=== PATIENT | female | born 1950 | race Caucasian/White ===

== ENCOUNTER 2018-04-16 21:10 | Observation (INO) ==
[2018-04-16 21:38] LABS: Bilirubin,Urine Negative (Negative); Blood,Urine Trace (Negative); Clarity,Urine Clear (Clear); Color,Urine Yellow (Yellow); Glucose,Urine (UA) Normal (Normal); Ketones,Urine Negative (Negative); Leukocyte Esterase,Urine Negative (Negative); Nitrite,Urine Negative (Negative); Protein,Urine Trace mg/dL (Neg-Trace); Specific Gravity,Urine 1.012 (1.010-1.025); Urobilinogen,Urine Normal (Normal)
[2018-04-16 21:41] LABS: Bacteria,Urine None Seen per hpf (None-Few); Hyaline Casts,Urine None Seen per lpf (None-Few); Squamous Epithelial Cell,Urine Few per lpf (None-Few); WBC,Urine 0-3 per hpf (0-3)
[2018-04-16] MEDS ORDERED: Levofloxacin 750 MG/150 ML 750 MG/150 ML BAG IVPB ONE (21:42)
[2018-04-16] MEDS ORDERED: Ipratropium/Albuterol Neb 3 ML IH ONE (21:42)
[2018-04-16] MEDS ORDERED: methylPREDNISolone 125 MG/2 ML VIAL IVP ONE (21:42)
--- NOTE | 2018-04-16 21:43 | Emergency Department Note ---
Disposition Clinical Impression: Hip pain, left Acetabular fracture Qualifiers: Encounter type: initial encounter Sublocation of acetabulum: unspecified portion of acetabulum Fracture type: closed Fracture alignment: nondisplaced Laterality: left Qualified Code(s): S32.402A - Unspecified fracture of left acetabulum, initial encounter for closed fracture Pubic ramus fracture Qualifiers: Encounter type: subsequent encounter Fracture type: closed Laterality: right Fracture healing: with nonunion Qualified Code(s): S32.591K - Other specified fracture of right pubis, subsequent encounter for fracture with nonunion Pneumonia Qualifiers: Pneumonia type: due to unspecified organism Laterality: right Lung location: middle lobe of lung Qualified Code(s): J18.1 - Lobar pneumonia, unspecified organism Disposition: Admitted As Inpatient Condition: Good Time of Disposition: 22:47 General Adult HPI - General Chief complaint: ED Extremity Injury, Lower Stated complaint: Fall Time Seen by Provider: 04/16/18 21:10 Source: patient, EMS Limitations: no limitations Nursing Notes Reviewed: Yes Vital Signs Reviewed: Yes - History of Present Illness HPI Narrative: Female patient sustained a ground-level fall that was mechanical around 7:00 today. [facility] with pubic rami fractures age-indeterminate. Ambulate when she got home. Also complaining of some shortness of breath. Does have a history of COPD. Plenty of pain in her inguinal area bilaterally. As well as her hips. States she cannot bear any weight due to the pain in her hips. Has not tried any medication to make it better. She was given tramadol prescription but she has not gotten this filled. Did call 911 to be seen here. Pain Scale: 10 - Related Data Home Medications Medication Instructions Recorded Confirmed Aspirin [Lo-Dose Aspirin EC] 81 mg PO DAILY 03/16/17 04/16/18 Albuterol Sulfate [Ventolin Hfa] 2 puff IH Q4H PRN 04/16/18 04/16/18 Budesonide/Formoterol 160/4.5 2 puff IH BIDR 04/16/18 04/16/18 [Symbicort 160/4.5] Omeprazole [PriLOSEC] 40 mg PO DAILY 04/16/18 04/16/18 Previous Rx's Medication Instructions Recorded Diltiazem CD (24hr) [Cardizem CD] 120 mg PO DAILY #30 cap.er.24h 01/12/17 Ranitidine HCl [Zantac] 300 mg PO HS #30 tablet 03/16/17 Tramadol HCl [Ultram] 50 mg PO BID PRN 3 Days #10 tab 04/16/18 Allergies Allergy/AdvReac Type Severity Reaction Status Date / Time acetaminophen [From Tylenol] Allergy See Verified 04/16/18 21:56 Comments ibuprofen Allergy See Verified 04/16/18 21:56 Comments All systems ED: reviewed and negative except as stated. Constitutional: Denies: fever, chills ENT ED: Denies: congestion Cardiovascular: Denies: chest pain, palpitations, syncope Respiratory: Reports: cough, dyspnea Gastrointestinal: Denies: abdominal pain, nausea, vomiting, diarrhea, hematemesis, melena, hematochezia Genitourinary: Denies: urgency, dysuria, frequency Musculoskeletal: Reports: other (Bilateral hip pain.). Denies: back pain, neck pain Integumentary: Denies: rash Neurological: Reports: weakness. Denies: headache Past Medical History - Past Medical History Attestation: Yes The following information was validated with the patient. 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 - Social History Smoking Status: Current every day smoker Smokeless Tobacco Status: No Alcohol use: Reports: none Drug use: Reports: none Physical Exam - General Limitations: no limitations General appearance: alert, in no apparent distress - Head Head exam: atraumatic, normocephalic, normal inspection, other (No hematomas no abrasions no ecchymosis.) - Eye Eye exam: Present: normal appearance, PERRL, EOMI - ENT ENT exam: normal exam, normal oropharynx, mucous membranes moist - Neck Neck exam: Present: normal inspection, full ROM, trachea midline - Chest Chest inspection: Present: normal inspection, symmetric chest wall rise - Respiratory Respiratory exam: Present: other (Rhonchi throughout.). Absent: respiratory distress, accessory muscle use - Cardiovascular Cardiovascular exam: Present: regular rate, normal rhythm, normal heart sounds - Abdominal Exam Abdominal exam: Present: soft, Non-Tender. Absent: tenderness, distention, guarding, rebound, rigidity, organomegaly - Extremities Exam Extremities exam: Present: tenderness (To palpation of both greater trochanters. She also has in extensioon of her hips bilaterally.good capillary refill to both bilateral loower extremities. bilateral inguinal pain on palpation. pain on section), normal capillary refill. Absent: pedal edema - Back Exam Back exam: Present: normal inspection, full ROM. Absent: tenderness - Neurological Exam Neurological exam: Present: alert, oriented X3 - Psychiatric Psychiatric exam: Present: normal affect, normal mood - Skin Skin exam: Present: warm, dry, intact, normal color Course Course Narrative: Female patient brought in by EMS for bilateral hip pain. She had a fall around 7 AM this morning. She states it was mechanical. She started to walk but slipped and fell. She has been complaining of inguinal pain bilaterally since. She states that she did bump her head. She is not on blood thinners. She denies any loss of consciousness. She denies pain to palpation of midline cervical area. She does have pain palpation of her bilateral inguinal areas as well as bilateral trochanteric areas. She states that she was diagnosed with pelvic fractures [facility] and sent home. She did go home with her daughter. She states that she could not get up and ambulate as she is in too much pain. Patient does have rhonchi throughout. Chest x-ray from [facility] does show some slight hazy opacities on the right. I do believe this is a pneumonia due to patient's stated shortness of breath and rhonchi. She does have a history of COPD. She is a smoker. We did talk about smoking sensation. On CT evaluation patient does have pubic rami fractures bilaterally. I do not appreciate any hip fractures. She does have the pneumonia right-sided on chest x-ray. We did get a basic lab workup on her and we will provide her with steroids and albuterol treatment as well as Levaquin. We will admit to the hospital. - Consultations Consultation #1: I spoke with Dr Mckinney. He requests the Pt being nonweight bearing. He will see the Pt tomorrow. Time: 22:34 Consultation #2: Dr Cain accepted Pt in stable condition. Time: 22:36 Vital Signs Temperature 98.7 F 04/16/18 21:14 Pulse Rate 98 04/16/18 21:14 Respiratory Rate 16 04/16/18 21:14 Blood Pressure 182/67 04/16/18 21:14 O2 Sat by Pulse Oximetry 95 04/16/18 21:14 Temperature 98.7 F 04/16/18 21:14 Pulse Rate 102 04/16/18 22:03 Respiratory Rate 20 04/16/18 22:03 Blood Pressure 134/58 04/16/18 22:03 O2 Sat by Pulse Oximetry 95 04/16/18 22:03 Oxygen Delivery Oxygen Delivery Room Air Medical Decision Making - Medical Records Medical records reviewed: Yes I reviewed the patient's medical records. - Lab Data Lab results reviewed: Yes I reviewed the patient's lab results. Result diagrams: 04/16/18 21:40 04/16/18 21:40 Lab Results 04/16/18 04/16/18 04/16/18 Range/Units 21:20 21:40 21:40 WBC 9.2 (4.3-11.1) K/mcL RBC 4.34 (3.82-4.97) M/mcL Hgb 13.3 (11.5-15.4) g/dL Hct 38.6 (35.3-44.9) % MCV 88.9 (83.0-100.0) fL MCH 30.6 (28.0-33.3) pg MCHC 34.5 (31.6-35.5) g/dL RDW 13.4 (11.5-14.5) % Plt Count 169 (140-400) K/mcL MPV 8.5 L (9.4-12.4) fL Immature Gran % 0.2 (0-4) % Seg Neutrophils % 66.8 % Lymphocytes % 25.9 % Monocytes % 6.0 % Eosinophils % 0.8 % Basophils % 0.3 % Neutrophils # 6.2 (1.6-8.9) K/mcL Lymphocytes # 2.4 (0.6-4.6) K/mcL Monocytes # 0.6 (0.0-1.3) K/mcL Eosinophils # 0.1 (0.0-0.6) K/mcL Basophils # 0.0 (0.0-0.2) K/mcL Sodium 142 (136-145) mEq/L Potassium 3.8 (3.5-5.1) mEq/L Chloride 109 H (98-107) mEq/L Carbon Dioxide 25 (23-29) mEq/L BUN 16 (8-23) mg/dL Creatinine 0.60 (0.60-1.20) mg/dL Est GFR ( Amer) > 60 (> 60) Est GFR (Non-Af Amer) > 60 (> 60) BUN/Creatinine Ratio 27 H (6-26) Glucose 136 H (70-105) mg/dL Calculated Osmolality 297 (280-300) Calcium 9.3 (8.6-10.3) mg/dL Troponin I < 0.03 (< 0.04) ng/mL Urine Color Yellow (Yellow) Urine Clarity Clear (Clear) Urine pH 7.0 (5.0-8.0) pH Units Ur Specific [place] 1.012 (1.010-1.025) Urine Protein Trace (Neg-Trace) mg/dL Urine Glucose (UA) Normal (Normal) mg/dL Urine Ketones Negative (Negative) mg/dL Urine Blood Trace H (Negative) Urine Nitrite Negative (Negative) Urine Bilirubin Negative (Negative) Urine Urobilinogen Normal (Normal) mg/dL Ur Leukocyte Esterase Negative (Negative) Urine Microscopic RBC 5-15 H (0-3) per hpf Urine Microscopic WBC 0-3 (0-3) per hpf Ur Squamous Epith Cells Few (None-Few) per lpf Urine Bacteria None Seen (None-Few) per hpf Hyaline Casts None Seen (None-Few) per lpf Ur Culture Indicated? NO (NO) - Radiology Data Radiology results reviewed: Yes I reviewed the patient's radiology results. Pelvis CT 04/16/18 21:22 IMPRESSION: Comminuted fracture of the right pubis. Minimally displaced fractures of the bilateral inferior pubic rami. Nondisplaced fracture of the left anterior acetabulum. Minimally displaced fracture of the left sacral ala. D/ / Gurwinder Reyes MD / Gurwinder Reyes MD Interpreting Provider: Gurwinder Reyes MD - EKG Data EKG #1 EKG attestation: Yes I reviewed and interpreted this EKG. EKG results narrative: EKG shows incomplete bundle branch with ventricular rate of 96. MO interval appears to be approximately 170 ms. QRS duration 102. QTC of 412. No acute signs of ST segment elevation or reciprocal changes at this time. No acute signs of WPW or Brugada syndrome. Morphology in lead V2 is change from previous with Q waves patient is denying chest pain or symptoms and her troponin is negative. EKG was collected secondary to the patient's increased work of breathing. Otherwise she is clinically stable. EKG was compared to 01/12 with similar presenting intervals and presentation. Attestation Statement - Attestation Attestation: I, Sriram Rose DO, examined this patient [id number] and my medical decision-making was reviewed with Dr. Esther Nunes, Resident Physician. I agree with the documented findings, disposition and treatment plan as described except to the extent set forth below. Please see my progress notes for details.
[2018-04-16 22:04] LABS: Basophils % 0.3 %; Eosinophils # 0.1 K/mcL (0.0-0.6); Eosinophils % 0.8 %; Hematocrit 38.6 % (35.3-44.9); Hemoglobin 13.3 g/dL (11.5-15.4); Immature Granulocytes % 0.2 % (0-4); Lymphocytes # 2.4 K/mcL (0.6-4.6); Lymphocytes % 25.9 %; Mean Corpuscular HGB Conc 34.5 g/dL (31.6-35.5); Mean Corpuscular Hemoglobin 30.6 pg (28.0-33.3); Mean Corpuscular Volume 88.9 fL (83.0-100.0); Mean Platelet Volume 8.5 fL (9.4-12.4); Monocytes # 0.6 K/mcL (0.0-1.3); Neutrophils # 6.2 K/mcL (1.6-8.9); Platelet Count 169 K/mcL (140-400); Red Blood Count 4.34 M/mcL (3.82-4.97); Red Cell Distribution Width 13.4 % (11.5-14.5); Segmented Neutrophils % 66.8 %
[2018-04-16] MEDS ORDERED: *HR* Nalbuphine 10 MG/ML AMPUL IV STA (22:14)
--- NOTE | 2018-04-16 22:23 | Emergency Department Note ---
Disposition Clinical Impression: Hip pain, left, Acetabular fracture, Pubic ramus fracture, Pneumonia Disposition: Admitted As Inpatient Condition: Fair Forms: ED Satisfaction Letter Time of Disposition: 22:38 General Adult HPI - General Chief complaint: ED Extremity Injury, Lower Stated complaint: Fall Time Seen by Provider: 04/16/18 21:10 Source: patient, EMS Limitations: no limitations - History of Present Illness Pain Scale: 8 - Related Data Home Medications Medication Instructions Recorded Confirmed Aspirin [Lo-Dose Aspirin EC] 81 mg PO DAILY 03/16/17 04/16/18 Albuterol Sulfate [Ventolin Hfa] 2 puff IH Q4H PRN 04/16/18 04/16/18 Budesonide/Formoterol 160/4.5 2 puff IH BIDR 04/16/18 04/16/18 [Symbicort 160/4.5] Omeprazole [PriLOSEC] 40 mg PO DAILY 04/16/18 04/16/18 Previous Rx's Medication Instructions Recorded Diltiazem CD (24hr) [Cardizem CD] 120 mg PO DAILY #30 cap.er.24h 01/12/17 Ranitidine HCl [Zantac] 300 mg PO HS #30 tablet 03/16/17 Tramadol HCl [Ultram] 50 mg PO BID PRN 3 Days #10 tab 04/16/18 Allergies Allergy/AdvReac Type Severity Reaction Status Date / Time acetaminophen [From Tylenol] Allergy See Verified 04/16/18 21:56 Comments ibuprofen Allergy See Verified 04/16/18 21:56 Comments Past Medical History - Past Medical History Medical history: Reports: asthma, COPD, GERD, hypertension, myocardial infarction Surgical history: Reports: cholecystectomy, other (Cardiac catheterization) Psychiatric history: Reports: anxiety, depression 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 - Social History Smoking Status: Current every day smoker Smokeless Tobacco Status: No Alcohol use: Reports: none Drug use: Reports: none Physical Exam - General Limitations: no limitations General appearance: alert, in no apparent distress Course Vital Signs Temperature 98.7 F 04/16/18 21:14 Pulse Rate 98 04/16/18 21:14 Respiratory Rate 16 04/16/18 21:14 Blood Pressure 182/67 04/16/18 21:14 O2 Sat by Pulse Oximetry 95 04/16/18 21:14 Temperature 98.7 F 04/16/18 21:14 Pulse Rate 102 04/16/18 22:03 Respiratory Rate 20 04/16/18 22:03 Blood Pressure 134/58 04/16/18 22:03 O2 Sat by Pulse Oximetry 95 04/16/18 22:03 Oxygen Delivery Oxygen Delivery Room Air Medical Decision Making - Lab Data Result diagrams: 04/16/18 21:40 Lab Results 04/16/18 04/16/18 Range/Units 21:20 21:40 WBC 9.2 (4.3-11.1) K/mcL RBC 4.34 (3.82-4.97) M/mcL Hgb 13.3 (11.5-15.4) g/dL Hct 38.6 (35.3-44.9) % MCV 88.9 (83.0-100.0) fL MCH 30.6 (28.0-33.3) pg MCHC 34.5 (31.6-35.5) g/dL RDW 13.4 (11.5-14.5) % Plt Count 169 (140-400) K/mcL MPV 8.5 L (9.4-12.4) fL Immature Gran % 0.2 (0-4) % Seg Neutrophils % 66.8 % Lymphocytes % 25.9 % Monocytes % 6.0 % Eosinophils % 0.8 % Basophils % 0.3 % Neutrophils # 6.2 (1.6-8.9) K/mcL Lymphocytes # 2.4 (0.6-4.6) K/mcL Monocytes # 0.6 (0.0-1.3) K/mcL Eosinophils # 0.1 (0.0-0.6) K/mcL Basophils # 0.0 (0.0-0.2) K/mcL Urine Color Yellow (Yellow) Urine Clarity Clear (Clear) Urine pH 7.0 (5.0-8.0) pH Units Ur Specific [place] 1.012 (1.010-1.025) Urine Protein Trace (Neg-Trace) mg/dL Urine Glucose (UA) Normal (Normal) mg/dL Urine Ketones Negative (Negative) mg/dL Urine Blood Trace H (Negative) Urine Nitrite Negative (Negative) Urine Bilirubin Negative (Negative) Urine Urobilinogen Normal (Normal) mg/dL Ur Leukocyte Esterase Negative (Negative) Urine Microscopic RBC 5-15 H (0-3) per hpf Urine Microscopic WBC 0-3 (0-3) per hpf Ur Squamous Epith Cells Few (None-Few) per lpf Urine Bacteria None Seen (None-Few) per hpf Hyaline Casts None Seen (None-Few) per lpf Ur Culture Indicated? NO (NO) Attestation Statement - Attestation Attestation: I, Sriram Rose DO, examined this patient [id number] and my medical decision-making was reviewed with Dr. Esther Nunes, Resident Physician. I agree with the documented findings, disposition and treatment plan as described except to the extent set forth below. Please see my progress notes for details. 67-year-old female presents emergency room for evaluation of bilateral hip pain and back pain. Patient fell and was diagnosed with pubic rami fractures. Patient was attempting to go home this afternoon was unable to get up and down her stairs without significant difficulty and significant pain in her hips. She denies any new fall. Denied any head injury at that time. Denies any chest pain shortness of breath headache vision changes nausea vomiting or diarrhea. She does have known COPD and a productive cough. She has smoked. She will use his breathing treatments at home. Currently denying any other symptoms or complaints. Patient is mainly here because the pain in her back and cannot take care of herself. Chest x-ray is concerning for possible pneumonia with the previous evaluation. X-rays also showed age-indeterminate pubic rami fracture. Pain medication side Medrol breathing treatments will be given secondary to the cough productive sputum. Patient will have EKG CBC chemistry troponin and BMP collected along with screening evaluation and CT imaging of the pelvis. Disposition pending the full workup and treatment course. Symptomatic control will be established. An approximately started if needed. Patient is otherwise clinical stable despite discomfort. See detailed documentation of the physical exam, medical intervention, medical decision- making and disposition in the resident physician's note. 2230 Patient found to have pubic rami fractures as well as an anterior acetabular fracture of the left hip. Sacral alar fracture is also noted. This is most likely the reason for the patient having symptoms in the pelvis and hip at this time. She was started on antibiotics secondary to suspicion for pneumonia as well as a elevated white blood cell count. The remainder the labs and imaging modalities appear to be otherwise stable. Orthopedics will be consult at the request of the hospitalist Dr. Munoz. The remainder of the medical intervention and evaluation. Be stable. Orthopedics Dr. giraldo was contacted no other recommendations at this time. Patient will be admitted for definitive management and pain control. In about 7 started. Blood cultures ordered. EKG to be reviewed and patient will be observed in emergency room until admission process is completed
[2018-04-16 22:26] LABS: BUN/Creatinine Ratio 27 (6-26); Blood Urea Nitrogen 16 mg/dL (8-23); Calcium 9.3 mg/dL (8.6-10.3); Carbon Dioxide 25 mEq/L (23-29); Chloride 109 mEq/L (98-107); Glucose 136 mg/dL (70-105); Osmolality,Calculated 297 (280-300); Potassium 3.8 mEq/L (3.5-5.1); Sodium 142 mEq/L (136-145); eGFR For Non-African Americans > 60 (> 60)
[2018-04-16 22:27] LABS: Troponin I < 0.03 ng/mL (< 0.04)
[2018-04-16] MEDS ORDERED: Naloxone 0.4 MG/ML INJ IVP PRN (23:36)
[2018-04-17] MEDS ORDERED: Isovue-370 500 ML INFUS..BTL IV ONE (00:31)
--- NOTE | 2018-04-17 01:05 | Internal Med History&Physical ---
Date of Encounter: 04/17/18 Time of Encounter: 01:00 Internal Medicine - H&P: HPI Chief complaint: Bilateral hip and back pain History of present illness: Ms. Flores is a 67 year old female with pmh of COPD, GERD, VA presenting with complaints. Patient says she got up from bed to go to the bathroom and must have tripped over a pair of scissors and fell heavily. She says she had severe pain when she tried to get up and has had severe pain on ambulating since then. She called her daughter who called EMS to bring her in. she also complains of shortness of breath and coughing non productive that has been going on for a while now. She admits to occasional chills. She also noted she has had abdominal swelling that has been going on for a while, denies any history of liver disease. She denies any abdominal pain, nausea, vomiting or diarrhea. In the ER, CT of the pelvis showed pubic rami fracture and an anterior acetabular fracture of the left hip. She was given steroids and antibiotics and breathing treatment as well as orthopedic surgery was consulted Past Med Surg Social Fam HX - Past Medical History Medical history: asthma, COPD, CVA, GERD, hypertension, myocardial infarction Psychiatric history: anxiety, depression - Past Surgical History Surgical History: cholecystectomy, other Additional surgical history: collapsed lung. heart cath - Social History Smoking Status: Current every day smoker Smokeless Tobacco Status: No Alcohol use: none Drug use: none - Family History Mother Living Status: Cause of : VA Hx Family Cardiac Disorders: Yes Father Living Status: Cause of : Got shot Internal Medicine - H&P: Meds Diltiazem CD (24hr) [Cardizem CD] 120 mg PO DAILY #30 cap.er.24h 01/12/17 [Rx] Aspirin [Lo-Dose Aspirin EC] 81 mg PO DAILY 03/16/17 [History] Ranitidine HCl [Zantac] 300 mg PO HS #30 tablet 03/16/17 [Rx] Albuterol Sulfate [Ventolin Hfa] 2 puff IH Q4H PRN 04/16/18 [History] Budesonide/Formoterol 160/4.5 [Symbicort 160/4.5] 2 puff IH BIDR 04/16/18 [ History] Omeprazole [PriLOSEC] 40 mg PO DAILY 04/16/18 [History] Tramadol HCl [Ultram] 50 mg PO BID PRN 3 Days #10 tab 04/16/18 [Rx] 3 Allergy/AdvReac Type Severity Reaction Status Date / Time acetaminophen [From Tylenol] Allergy See Verified 04/16/18 21:56 Comments ibuprofen Allergy See Verified 04/16/18 21:56 Comments All Systems PM: A 10-system review of systems was performed and is negative for pertinent findings except as documented above in the HPI. - Constitutional Constitutional: no chills, no fever(s), no night sweats - EENT Eyes: no change in vision, no discharge, no pain, no photophobia Ears: no ear discharge, no ear pain, no tinnitus Nose, mouth and throat: no dysphagia, no nasal discharge, no neck pain, no sore throat - Cardiovascular Cardiovascular ROS IM: dyspnea, no chest pain, no diaphoresis, no lightheadedness, no palpitations, no syncope - Respiratory Respiratory: wheezing, no cough, no dyspnea, no excessive phlegm production - Gastrointestinal Gastrointestinal: no abdominal pain, no diarrhea, no hematemesis, no hematochezia, no melena, no nausea, no vomiting - Genitourinary Genitourinary: no change in urinary stream, no dysuria, no flank pain, no hematuria - Musculoskeletal Musculoskeletal ROS IM: back pain, no numbness, no tingling Additional comments: hip pain - Integumentary Integumentary IM: no rash, no unusual bruising - Neurological Neurological ROS: no confusion, no convulsions, no focal weakness, no numbness, no tingling, no tremor(s) - Hematologic/Lymphatic Hematologic/Lymphatic: no easy bruising - Constitutional Vitals: Temp Pulse Resp BP Pulse Ox 98.3 F 98 18 162/68 92 04/16/18 23:48 04/16/18 23:48 04/16/18 23:48 04/16/18 23:48 04/16/18 23:48 - Head Head exam: Present: atraumatic, normocephalic - Eye Eye exam: Present: PERRL, conjuntiva pink, sclera anicteric Pupils: Present: PERRL - Neck Neck exam general surgery: Present: supple, trachea midline. Absent: lymphadenopathy - Respiratory Respiratory exam: Present: wheezes. Absent: accessory muscle use, rales, rhonchi - Cardiovascular Cardiovascular exam: Present: RRR, +S1, +S2. Absent: diastolic murmur, gallop, rubs, systolic murmur - GI/Abdominal GI/Abdominal exam: Present: distended, normal bowel sounds, soft, no peritoneal signs. Absent: tenderness Additional comments: tympanitic to percussion - Extremities Exam Extremities exam: Present: warm, radial pulses palpable and symmetrical. Absent : calf tenderness, cyanotic, pedal edema - Neurological Exam Neurological exam: Present: CN II-XII intact, oriented X3, no focal deficits. Absent: pronater drift, facial droop, speech deficit - Skin Skin exam: Present: dry, intact Internal Med - H&P Results - Labs CBC & Chem 7: 04/17/18 00:47 04/17/18 00:47 - Assessment and plan (1) Pubic ramus fracture Current Visit: Yes Status: Acute Assessment and plan: s/p fall today. CT pelvis showed comminuted fracture of the right pubis and minimally displaced factures of the bilateral inferior pubic rami and non displaced fracture of the left anterior acetabulum. Pain control PRN. Orthopedic surgery to evaluate in am Qualifiers: Encounter type: subsequent encounter Fracture type: closed Laterality: right Fracture healing: with nonunion Qualified Code(s): S32.591K - Other specified fracture of right pubis, subsequent encounter for fracture with nonunion (2) Acetabular fracture Current Visit: Yes Status: Acute Assessment and plan: s/p fall today. CT pelvis showed comminuted fracture of the right pubis and minimally displaced factures of the bilateral inferior pubic rami and non displaced fracture of the left anterior acetabulum. Pain control PRN. Orthopedic surgery to evaluate in am Qualifiers: Encounter type: initial encounter Sublocation of acetabulum: unspecified portion of acetabulum Fracture type: closed Fracture alignment: nondisplaced Laterality: left Qualified Code(s): S32.402A - Unspecified fracture of left acetabulum, initial encounter for closed fracture (3) COPD exacerbation Current Visit: Yes Status: Acute Assessment and plan: Started on nebs, steroids and antibiotics. Obtain chest xray (4) DVT prophylaxis Current Visit: Yes Status: Acute Assessment and plan: heparin sc (5) Abdominal distension Current Visit: Yes Status: Acute Assessment and plan: Unclear etiology. Patient says she has had abdominal swelling for a while. Abdomen is tympanitic to percussion. Obtain LFTs, CT abdomen - Time Spent With Patient Total time spent is greater than 50% in coordination of care (as documented) at patient's floor/unit and/or counseling patient:
[2018-04-17] MEDS: methylPREDNISolone 125 MG/2 ML VIAL IVP SCH ×2 (01:23→08:02)
[2018-04-17] MEDS: Ipratropium/Albuterol Neb 3 ML IH SCH ×5 (01:24→16:03)
[2018-04-17 01:44] LABS: Basophils % 0.2 %; Eosinophils % 0.2 %; Hematocrit 36.6 % (35.3-44.9); Hemoglobin 12.3 g/dL (11.5-15.4); Immature Granulocytes % 0.4 % (0-4); Lymphocytes # 0.9 K/mcL (0.6-4.6); Lymphocytes % 8.9 %; Mean Corpuscular HGB Conc 33.6 g/dL (31.6-35.5); Mean Corpuscular Hemoglobin 29.4 pg (28.0-33.3); Mean Corpuscular Volume 87.6 fL (83.0-100.0); Mean Platelet Volume 9.3 fL (9.4-12.4); Monocytes # 0.2 K/mcL (0.0-1.3); Monocytes % 1.5 %; Neutrophils # 8.8 K/mcL (1.6-8.9); Platelet Count 186 K/mcL (140-400); Red Blood Count 4.18 M/mcL (3.82-4.97); Red Cell Distribution Width 13.5 % (11.5-14.5); Segmented Neutrophils % 88.8 %
[2018-04-17 02:05] LABS: Albumin 4.1 g/dL (3.5-5.7); Albumin/Globulin Ratio 1.3 (1.1-2.2); BUN/Creatinine Ratio 24 (6-26); Bilirubin,Direct 0.1 mg/dL (0.0-0.2); Bilirubin,Indirect 0.3 mg/dL (0.0-1.2); Bilirubin,Total 0.4 mg/dL (0.3-1.0); Blood Urea Nitrogen 17 mg/dL (8-23); Calcium 9.2 mg/dL (8.6-10.3); Carbon Dioxide 23 mEq/L (23-29); Chloride 107 mEq/L (98-107); Globulin 3.2 g/dL (2.4-3.5); Glucose 279 mg/dL (70-105); Osmolality,Calculated 302 (280-300); Potassium 3.9 mEq/L (3.5-5.1); Sodium 140 mEq/L (136-145); Total Protein 7.3 g/dL (6.4-8.9); eGFR For Non-African Americans > 60 (> 60)
[2018-04-17] MEDS: traMADol 50 MG TABLET PO PRN ×2 (05:21→17:14)
[2018-04-17] MEDS ORDERED: *HR* Heparin 5,000 UNIT/ML VIAL SQ SCH (06:00)
[2018-04-17] MEDS ORDERED: Levofloxacin 750 MG/150 ML 750 MG/150 ML BAG IVPB SCH (09:00)
[2018-04-17] MEDS ORDERED: Aspirin Enteric Coated 81 MG Tablet PO SCH (09:00)
[2018-04-17] MEDS ORDERED: Diltiazem CD (24hr) 120 MG CAPSULE PO SCH (09:00)
[2018-04-17] MEDS ORDERED: Budesonide/Formoterol 160/4.5 1 PUFF INH IH SCH (10:00)
[2018-04-17] MEDS ORDERED: Nicotine 21 MG PATCH.TD24 TD SCH (11:45)
--- NOTE | 2018-04-17 13:22 | Orthopedic Consult Note ---
Date of Encounter: 04/17/18 Time of Encounter: 12:20 Assessment and Plan (1) Pubic ramus fracture Status: Acute CT of pelvis showed - Comminuted fracture of the right pubis. Minimally displaced fractures of the bilateral inferior pubic rami. Nondisplaced fracture of the left anterior acetabulum. Minimally displaced fracture of the left sacral ala. Discussed with Dr. Mckinney who recommends nonoperative management at this time. TTWB. PT/OT eval. Will likely need ECF placement. Pain control per hospitalist. Follow up with sports medicine in [place] office in 1 weeks. Qualifiers: Encounter type: subsequent encounter Fracture type: closed Laterality: right Fracture healing: with routine healing Qualified Code(s): S32.591D - Other specified fracture of right pubis, subsequent encounter for fracture with routine healing (2) Acetabular fracture Status: Acute same as above Qualifiers: Encounter type: initial encounter Sublocation of acetabulum: anterior wall Fracture type: closed Fracture alignment: nondisplaced Laterality: left Qualified Code(s): S32.415A - Nondisplaced fracture of anterior wall of left acetabulum, initial encounter for closed fracture History of Present Illness Chief complaint: hip pain HPI: Ms. Flores is a 67 year old female presented to ER with hip pain after a fall yesterday morning. She states she fell in her bedroom while trying to get up to go to the bathroom. Typically ambulates with a walker/cane. States she has minimal pain in hips at this time while at rest and has had improved motion in legs since being admitted. Denies any numbness or tingling to extremities. Denies hitting head or LOC. She does have chronic SOB due to COPD. States she lives alone at home. Past Med Surg Social Fam HX - Past Medical History Medical history: asthma, COPD, CVA, GERD, hypertension, myocardial infarction Psychiatric history: anxiety, depression - Past Surgical History Surgical History: cholecystectomy, other Additional surgical history: collapsed lung. heart cath - Social History Smoking Status: Current every day smoker Smokeless Tobacco Status: No Alcohol use: none Drug use: none - Family History Mother Living Status: Cause of : MD Hx Family Cardiac Disorders: Yes Father Living Status: Cause of : Got shot Medications and Allergies Diltiazem CD (24hr) [Cardizem CD] 120 mg PO DAILY #30 cap.er.24h 01/12/17 [Rx] Aspirin [Lo-Dose Aspirin EC] 81 mg PO DAILY 03/16/17 [History] Ranitidine HCl [Zantac] 300 mg PO HS #30 tablet 03/16/17 [Rx] Albuterol Sulfate [Ventolin Hfa] 2 puff IH Q4H PRN 04/16/18 [History] Budesonide/Formoterol 160/4.5 [Symbicort 160/4.5] 2 puff IH BIDR 04/16/18 [ History] Omeprazole [PriLOSEC] 40 mg PO DAILY 04/16/18 [History] Ipratropium/Albuterol Neb [Duoneb] 3 ml IH [id number] PRN inhsol 04/17/18 [Rx] Levofloxacin [Levaquin] 750 mg PO DAILY #4 tablet 04/17/18 [Rx] Tramadol HCl [Ultram] 50 mg PO Q8H PRN 5 Days #10 tab 04/17/18 [Rx] predniSONE [PredniSONE] 40 mg PO DAILY #10 tablet 04/17/18 [Rx] 3 Allergy/AdvReac Type Severity Reaction Status Date / Time acetaminophen [From Tylenol] Allergy See Verified 04/16/18 21:56 Comments ibuprofen Allergy See Verified 04/16/18 21:56 Comments All Systems Reviewed: The remainder of the systems were reviewed and are negative - Constitutional Constitutional: as per HPI - Cardiovascular Cardiovascular: as per HPI - Respiratory Respiratory: as per HPI - Musculoskeletal Musculoskeletal: as per HPI Physical Exam - Constitutional Vitals: Temp Pulse Resp BP Pulse Ox 98.4 F 103 16 151/79 93 04/17/18 11:28 04/17/18 11:28 04/17/18 11:28 04/17/18 11:28 04/17/18 11:28 - Hip bilateral Tenderness with palpation: anterior (mild tenderness to palpation to anterior pelvis. no eccymosis, erythema or skin lesions noted to bilateral hips. patient laying with knees bent comfortably with no pain in hips. full ROM of knees and good dorsiflexion of feet. no calf tenderness. grossly NV intact) Results - Labs Result Diagrams: 04/17/18 00:47 04/17/18 00:47 Labs: Abnormal lab results MPV 9.3 fL (9.4-12.4) L 04/17/18 00:47 Glucose 279 mg/dL (70-105) H 04/17/18 00:47 Calculated Osmolality 302 (280-300) H 04/17/18 00:47 Magnesium 1.4 mg/dL (1.6-2.6) L 04/17/18 00:47 Urine Blood Trace (Negative) H 04/16/18 21:20 Urine Microscopic RBC 5-15 per hpf (0-3) H 04/16/18 21:20 H & H 04/17/18 Range/Units 00:47 Hgb 12.3 (11.5-15.4) g/dL Hct 36.6 (35.3-44.9) % All other labs normal. - Diagnostic results Hip CT: report reviewed, image reviewed Consult Discharge Plan - Plan Additional Instructions: FOLLOW UP IN 1 WEEK WITH SPORTS MEDICINE PER NOEMI MOSLEY- 04/24/18 @ 1pm in [place], [place] office with Dr. Saavedra. TOE TOUCH WEIGHT BEARING TO LLE. Referrals: Raymon Saavedra MD [Non-Partnered Physician] - 04/24/18 1:00 pm (04/24/18 @ 1pm - [place] office) Prescriptions: Levofloxacin [Levaquin] 750 mg PO DAILY #4 tablet predniSONE [PredniSONE] 40 mg PO DAILY #10 tablet Tramadol HCl [Ultram] 50 mg PO Q8H PRN 5 Days #10 tab PRN Reason: Pain - Attending Attestation case and plan of care discussed with supervising physician who was available for all aspects of care.
--- NOTE | 2018-04-17 15:08 | Internal Med Progress Note ---
Hospitalist Progress Note - Encounter Date of Encounter: 04/17/18 Time of Encounter: 10:50 - Subjective Interval History: Reports feeling well; has left hip pain and lower back and pelvic pain, which is now better; no nausea, vomiting, abdominal pain; wants to go to rehab upon discharge; - Exam Vitals: Temp Pulse Resp BP Pulse Ox 98.4 F 103 16 151/79 93 04/17/18 11:28 04/17/18 11:28 04/17/18 11:28 04/17/18 11:28 04/17/18 11:28 Exam: General: Well-developed female lying comfortably in bed in no acute distress Chest: Coarse breath sounds B/L, no active wheezing; Heart: Normal S1 & S2; rhythmic. No rubs or murmurs. Abdomen: Non-distended, soft and nontender Extremities: No clubbing, cyanosis or edema. No calf tenderness. Normal distal pulses. Tenderness over left medial hip and groin Neurological: Awake, alert and oriented to person, place and time. No focal deficits. - Assessment and Plan (1) Acetabular fracture Current Visit: Yes Status: Acute Assessment and Plan: Pelvic CT shows comminuted fracture of right pubis, minimally displaced fractures of bilateral inferior pubic rami, nondisplaced left anterior acetabular fracture, minimally displaced fracture of left sacral ala. Orthopedic surgery consulted, recommend nonoperative conservative management at this time. Recommend touch-toe weight-bearing; To follow-up with orthopedic office in one week. Pain control with when necessary Tylenol and tramadol. Physical therapy evaluation recommended ECF placement. maintenance services dispatcher consulted. (2) Pubic ramus fracture Current Visit: Yes Status: Acute (3) COPD exacerbation Current Visit: Yes Status: Acute Assessment and Plan: Improving. Taper down IV steroids as tolerated. Continue empiric IV antibiotics, bronchodilators nebulization, supplemental oxygen. (4) DVT prophylaxis Current Visit: Yes Status: Acute Assessment and Plan: On subcutaneous heparin. (5) Abdominal distension Current Visit: Yes Status: Acute (6) CAD (coronary artery disease) Current Visit: Yes Status: Acute (7) Tobacco abuse Current Visit: Yes Status: Acute (8) Essential hypertension Current Visit: Yes Status: Acute (9) Anxiety and depression Current Visit: Yes Status: Acute (10) Pneumonia Current Visit: Yes Status: Acute - Time Spent with Patient Total time spent is greater than 50% in coordination of care (as documented) at patient's floor/unit and/or counseling patient: Internal Medicine: Result - Labs CBC & Chem 7: 04/17/18 00:47 04/17/18 00:47 Labs: Short CBC 04/17/18 Range/Units 00:47 WBC 9.9 (4.3-11.1) K/mcL Hgb 12.3 (11.5-15.4) g/dL Hct 36.6 (35.3-44.9) % Plt Count 186 (140-400) K/mcL Neutrophils # 8.8 (1.6-8.9) K/mcL BMP 04/17/18 00:47 Sodium 140 Potassium 3.9 Chloride 107 Carbon Dioxide 23 BUN 17 Creatinine 0.70 Glucose 279 H Calcium 9.2 Liver Function 04/17/18 Range/Units 00:47 Total Bilirubin 0.4 (0.3-1.0) mg/dL Direct Bilirubin 0.1 (0.0-0.2) mg/dL AST 15 (13-39) Units/L ALT 12 (7-52) Units/L Alkaline Phosphatase 70 (34-104) Units/L Albumin 4.1 (3.5-5.7) g/dL - Impressions Impressions Abdomen/Pelvis CT 04/17/18 10:00 IMPRESSION: Re- demonstration of multiple pelvic fractures as seen on the recent study. 2.6 x 1.4 cm AP/TR ill defined hypodensity along the gallbladder fossa the liver appears slightly smaller compared to the previous study from 2013. Etiology of this lesion is unclear. Correlation with previous pathology results is advised. Stool throughout the distal colon rectum. However, no evidence of bowel obstruction. D/ / Hemant Yip / Hemant Yip Interpreting Provider: Hemant Yip Chest X-Ray 04/17/18 23:42 IMPRESSION: Slightly increased ground-glass opacification at the right apex may represent underlying pneumonitis. D/ / Dar Rivera MD / Dar Rivera MD Interpreting Provider: Dar Rivera MD Consult Discharge Plan - Plan Additional Instructions: FOLLOW UP IN 1 WEEK WITH SPORTS MEDICINE PER NOEMI MOSLEY- APPOINTMENT WILL BE FAXED TO THE UNIT. Referrals: Donna Jessica, ADVERTISING REP [Primary Care Provider] - (1) Acetabular fracture Qualifiers: Encounter type: initial encounter Sublocation of acetabulum: anterior wall Fracture type: closed Fracture alignment: nondisplaced Laterality: left Qualified Code(s): S32.415A - Nondisplaced fracture of anterior wall of left acetabulum, initial encounter for closed fracture (2) Pubic ramus fracture Qualifiers: Encounter type: subsequent encounter Fracture type: closed Laterality: right Fracture healing: with routine healing Qualified Code(s): S32.591D - Other specified fracture of right pubis, subsequent encounter for fracture with routine healing (10) Pneumonia Qualifiers: Pneumonia type: due to unspecified organism Laterality: right Lung location : middle lobe of lung Qualified Code(s): J18.1 - Lobar pneumonia, unspecified organism
--- NOTE | 2018-04-17 15:17 | Discharge Summary ---
- NOTES TO OUTPATIENT PROVIDER Notes to Outpatient Provider: Left hip acetabular and pubic fractures, Orthopedics recommended nonoperative management; suspected Pneumonia and mild COPD; Date of Encounter: 04/17/18 Time of Encounter: 10:50 - Discharge Diagnosis (1) Acetabular fracture Priority: Primary Status: Acute Qualifiers: Encounter type: initial encounter Sublocation of acetabulum: anterior wall Fracture type: closed Fracture alignment: nondisplaced Laterality: left Qualified Code(s): S32.415A - Nondisplaced fracture of anterior wall of left acetabulum, initial encounter for closed fracture (2) Pubic ramus fracture Priority: Primary Status: Acute Qualifiers: Encounter type: subsequent encounter Fracture type: closed Laterality: right Fracture healing: with routine healing Qualified Code(s): S32.591D - Other specified fracture of right pubis, subsequent encounter for fracture with routine healing (3) COPD exacerbation Priority: Primary Status: Acute (4) Abdominal distension Priority: Primary Status: Resolved (5) CAD (coronary artery disease) Priority: Secondary Status: Chronic Qualifiers: Coronary Disease-Associated Artery/Lesion type: [place] artery [place] vs. transplanted heart: [place] heart Associated angina: without angina Qualified Code(s): I25.10 - Atherosclerotic heart disease of [place] coronary artery without angina pectoris (6) Tobacco abuse Priority: Secondary Status: Chronic (7) Essential hypertension Priority: Secondary Status: Chronic (8) Anxiety and depression Priority: Secondary Status: Chronic (9) Pneumonia Priority: Primary Status: Acute Qualifiers: Pneumonia type: due to unspecified organism Laterality: right Lung location: upper lobe of lung Qualified Code(s): J18.1 - Lobar pneumonia, unspecified organism Hospital course: Ms. Flores is a 67 year old female with the above medical problems, who was admitted with left hip and pelvic pain following a mechanical fall. Pelvic CT shows comminuted fracture of right pubis, minimally displaced fractures of bilateral inferior pubic rami, nondisplaced left anterior acetabular fracture, minimally displaced fracture of left sacral ala. Orthopedic surgery consulted, recommend nonoperative conservative management at this time. Recommend touch-toe weight-bearing; To follow-up with orthopedic office in one week. Physical therapy evaluation recommended ECF placement. services program manager consulted and patient is medically stable for this transfer. She was also treated with IV steroids, empiric IV antibiotics and breathing treatments for suspected mild acute exacerbation of COPD and right-sided pneumonia. Discharge discussed with: patient, nurse - Time Spent with Patient Total time spent providing and/or coordinating discharge services: Greater than 30 minutes (45 min) - Discharge Medications Prescriptions: Levofloxacin [Levaquin] 750 mg PO DAILY #4 tablet predniSONE [PredniSONE] 40 mg PO DAILY #10 tablet Tramadol HCl [Ultram] 50 mg PO Q8H PRN 5 Days #10 tab PRN Reason: Pain Home Medications: Diltiazem CD (24hr) [Cardizem CD] 120 mg PO DAILY #30 cap.er.24h 01/12/17 [Rx] Aspirin [Lo-Dose Aspirin EC] 81 mg PO DAILY 03/16/17 [History] Ranitidine HCl [Zantac] 300 mg PO HS #30 tablet 03/16/17 [Rx] Albuterol Sulfate [Ventolin Hfa] 2 puff IH Q4H PRN 04/16/18 [History] Budesonide/Formoterol 160/4.5 [Symbicort 160/4.5] 2 puff IH BIDR 04/16/18 [ History] Omeprazole [PriLOSEC] 40 mg PO DAILY 04/16/18 [History] Ipratropium/Albuterol Neb [Duoneb] 3 ml IH [id number] PRN inhsol 04/17/18 [Rx] Levofloxacin [Levaquin] 750 mg PO DAILY #4 tablet 04/17/18 [Rx] Tramadol HCl [Ultram] 50 mg PO Q8H PRN 5 Days #10 tab 04/17/18 [Rx] predniSONE [PredniSONE] 40 mg PO DAILY #10 tablet 04/17/18 [Rx] Allergies/Adverse Reactions: 3 Allergy/AdvReac Type Severity Reaction Status Date / Time acetaminophen [From Tylenol] Allergy See Verified 04/16/18 21:56 Comments ibuprofen Allergy See Verified 04/16/18 21:56 Comments Date of admission: 04/16/18 22:50 Primary care physician: Donan Jessica CNP Consults: 04/16/18 23:41 Consult to Physical Therapy [CONS] Routine Comment: Evaluate, develop and implement POC Reason for Consult: pubic rami fracture Does patient have active BEDREST order?: No Is patient medically & hemodynamically stable?: No Patient assessed for mobility or mobilized this visit?: No 04/16/18 23:53 Consult to Pastoral Services [CONS] Routine Comment: 04/17/18 10:59 Consult to Sintering Plant Supervisor [CONS] Routine Reason for SW Consult: DISCHARGE PLANNING 04/17/18 13:47 Consult to Occupational Therapy [CONS] Routine Comment: Evaluate, develop and implement POC Reason for Consult: DISCHARGE PLANNING Does patient have active BEDREST order?: No Is patient medically & hemodynamically stable?: No Discharging clinician: Ghazala Barraza Anticipated date of discharge: 04/17/18 - Constitutional Vitals: Temp Pulse Resp BP Pulse Ox 98.4 F 103 16 151/79 93 04/17/18 11:28 04/17/18 11:28 04/17/18 11:28 04/17/18 11:28 04/17/18 11:28 General appearance: Present: A&O X 3, answers questions appropriately - Cardiovascular Cardiovascular exam: Present: RRR, +S1, +S2. Absent: diastolic murmur, gallop, rubs, systolic murmur - Patient Status Disposition: Transfer SNF Condition: Fair Functional capacity at discharge: uses cane/walker Overall status at discharge: patient is progressing back to baseline - Discharge Instructions Follow Up With: Donna Jessica CNP [Primary Care Provider] - Additional Instructions: FOLLOW UP IN 1 WEEK WITH SPORTS MEDICINE PER NOEMI MOSLEY- APPOINTMENT WILL BE FAXED TO THE UNIT. - Diet and Activity Activity: as per physical therapy, wear oxygen at all times (PRN to keep O2 sat> 90%) Diet: low fat, low cholesterol, low salt diet
--- NOTE | 2018-04-17 15:25 | Physician Discharge Referral ---
ExtendedCare Referral Info Provider in Charge: Ghazala Barraza Provider in Charge after Transfer: PCP Institutional Level of Care: Skilled - Diagnosis (1) Acetabular fracture Priority: Primary Status: Acute (2) Pubic ramus fracture Priority: Primary Status: Acute (3) COPD exacerbation Priority: Primary Status: Acute (4) Abdominal distension Priority: Primary Status: Resolved (5) CAD (coronary artery disease) Priority: Secondary Status: Chronic (6) Tobacco abuse Priority: Secondary Status: Chronic (7) Essential hypertension Priority: Secondary Status: Chronic (8) Anxiety and depression Priority: Secondary Status: Chronic (9) Pneumonia Priority: Primary Status: Acute Expected Duration of Placement: 3 weeks Prognosis: Fair Aware of Diagnosis: Patient Aware of Prognosis: Patient - Transfer Medications Prescriptions: Levofloxacin [Levaquin] 750 mg PO DAILY #4 tablet predniSONE [PredniSONE] 40 mg PO DAILY #10 tablet Tramadol HCl [Ultram] 50 mg PO Q8H PRN 5 Days #10 tab PRN Reason: Pain Home Medications: Diltiazem CD (24hr) [Cardizem CD] 120 mg PO DAILY #30 cap.er.24h 01/12/17 [Rx] Aspirin [Lo-Dose Aspirin EC] 81 mg PO DAILY 03/16/17 [History] Ranitidine HCl [Zantac] 300 mg PO HS #30 tablet 03/16/17 [Rx] Albuterol Sulfate [Ventolin Hfa] 2 puff IH Q4H PRN 04/16/18 [History] Budesonide/Formoterol 160/4.5 [Symbicort 160/4.5] 2 puff IH BIDR 04/16/18 [ History] Omeprazole [PriLOSEC] 40 mg PO DAILY 04/16/18 [History] Ipratropium/Albuterol Neb [Duoneb] 3 ml IH [id number] PRN inhsol 04/17/18 [Rx] Levofloxacin [Levaquin] 750 mg PO DAILY #4 tablet 04/17/18 [Rx] Tramadol HCl [Ultram] 50 mg PO Q8H PRN 5 Days #10 tab 04/17/18 [Rx] predniSONE [PredniSONE] 40 mg PO DAILY #10 tablet 04/17/18 [Rx] Allergies/Adverse Reactions: 3 Allergy/AdvReac Type Severity Reaction Status Date / Time acetaminophen [From Tylenol] Allergy See Verified 04/16/18 21:56 Comments ibuprofen Allergy See Verified 04/16/18 21:56 Comments - Respiratory Orders Oxygen / L per min (2L/min via [place] PRN to maintain O2 sat>90%) Smoking Cessation: Smoking cessation has been advised. For more information, call the [place] Tobacco Quit Line at 0-718-LQTN-NOW. - Advance Directives Power of Pocket Maker: Yes Code Status: Full Code - Mobility Orders Ambulate - Rehabiliation Orders Rehab Potential: Fair Rehab Orders: ROM Exercises, Evaluation for Physical Therapy, Evaluation for Occupational Therapy - Diet Orders Cardiac CERTIFICATION: I certify that the transfer of the above named patient to an Extended Care Facility is necessary for the continuing treatment of the diagnosis listed. The above information is true and accurate reflection of patient's current condition. Confidential - Redisclosure prohibited without a patient's written consent.
[2018-04-17] MEDS: MethylPREDNISolone 40 MG/ML VIAL IVP SCH ×2 (15:29→16:39)
[2018-04-17 16:03] VITALS: BP 155/78
--- NOTE | 2018-04-18 15:14 | Electrocardiograph Report ---
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
== END 2018-04-17 17:40 ==
LOC: EMEROO 21:10 → 3NENU 21:10 → SUATTDRO 22:50 → 3NENU 23:22
PROVIDERS: ADMIT Internal Medicine; ATTEND Internal Medicine

== ENCOUNTER 2018-12-13 02:52 | Observation (INO) ==
[2018-12-13] MEDS ORDERED: Ipratropium/Albuterol Neb 3 ML IH PRN (09:32)
[2018-12-13] MEDS ORDERED: OXYCODONE Oral CONC 10 MG/0.5 ML ORAL.SYG SL PRN (09:37)
[2018-12-13] MEDS ORDERED: Naloxone 0.4 MG/ML INJ IVP PRN (09:37)
[2018-12-13] MEDS ORDERED: *HR* LORazepam 1 MG TABLET PO ONE (10:00)
--- NOTE | 2018-12-13 10:12 | Internal Med History&Physical ---
Date of Encounter: 12/13/18 Time of Encounter: 09:00 Internal Medicine - H&P: HPI Chief complaint: Shortness of breath Admitted From: Emergency Dept Plans for Post Hospital Care: Home History of present illness: Ms. Flores is a 68 year old female with a past medical history of COPD on 3 L of chronic oxygen, long-standing history of hepatitis C he does not which are not known, a recent diagnosis of hepatocellular carcinoma with metastasis to the lungs and breast, presented to [facility] with progressive shortness of breath over 2-3 days. The patient denies any overt fevers or shakes or chills preceding shortness of breath. She does not know of any history of chronic heart failure or congestive heart failure in the past. She has not had any significant weight loss in the recent past. She denies having any sick contacts in the last few days or weeks preceding this event. At the ER at [facility] she received an x-ray which showed right hilar mass and there was moderate right-sided pleural effusion which had increased in size as compared to the prior examination in November 2018. She did not have elevation of her white count and no fevers. Regardless at dose of Levaquin was provided to her and a breathing treatment. She also received one bag of IV fluids-I am not really sure as to what the indication of that was. She has since been transferred over to [facility] for further management. Here the patient is sitting upright not visibly short of breath and is able to complete her sentences without any problems. Patient usually takes 3 L of oxygen at home and at the ER as well as in the hospital room, she needs to be on at least 4 L to maintain saturations at baseline Past Med Surg Social Fam HX - Past Medical History Medical history: arthritis, asthma, cancer, COPD, coronary artery disease, CVA, GERD, hypertension, malignancy, myocardial infarction Additional medical history: LUNG CA Psychiatric history: anxiety, depression - Past Surgical History Surgical History: cholecystectomy, other Additional surgical history: chest tube - Social History Smoking Status: Former smoker (Patient has almost 40-50 years of smoking history one pack a day and has quit 4 days ago. She does not have history of alcohol abuse) Smokeless Tobacco Status: No Alcohol use: none Drug use: none - Family History Mother History Unknown: Yes Living Status: Hx Family Cardiac Disorders: Yes Father History Unknown: Yes Living Status: Internal Medicine - H&P: Meds Diltiazem CD (24hr) [Cardizem CD] 120 mg PO DAILY #30 cap.er.24h 01/12/17 [Rx] Aspirin [Lo-Dose Aspirin EC] 81 mg PO DAILY 03/16/17 [History] Albuterol Sulfate [Ventolin Hfa] 2 puff IH Q4H PRN 04/16/18 [History] Omeprazole [PriLOSEC] 40 mg PO DAILY 04/16/18 [History] Ipratropium/Albuterol Neb [Duoneb] 3 ml IH [id number] PRN inhsol 04/17/18 [Rx] HydrOXYzine Pamoate [Vistaril] 50 mg PO TID PRN 12/01/18 [History] Allergy/AdvReac Type Severity Reaction Status Date / Time acetaminophen [From Tylenol] Allergy See Verified 04/16/18 21:56 Comments ibuprofen Allergy See Verified 04/16/18 21:56 Comments All Systems PM: A 10-system review of systems was performed and is negative for pertinent findings except as documented above in the HPI. - Constitutional Vitals: Temp Pulse Resp BP Pulse Ox 98.4 F 100 16 161/75 92 12/13/18 07:34 12/13/18 07:34 12/13/18 07:34 12/13/18 07:34 12/13/18 07:34 Exam: GENERAL: Alert, minimal distress, cooperative, able to complete sentences EYES: PERRLA, EOMI EARS: External ears normal, canals clear OROPHARYNX: Lips, mucosa, and tongue normal. Teeth and gums normal. Oropharynx normal. NECK: No jugulovenous distention, No carotid bruits, Carotid pulse normal contour, Supple LUNGS: Decreased breath sounds on the posterior lower half lung field over the right side, decreased chest excursion on inspiration on that side as well CARDIAC: Normal S1 and S2; no rubs, murmurs, or gallops ABDOMEN: Abdomen soft, non-tender, BS normal, No masses or organomegaly EXTREMITIES: 1+ pitting edema bilaterally, good capillary refill NEURO: Gait not tested Reflexes normal and symmetric. Sensation grossly intact, Cranial nerves II-XII intact PULSES: 2+ radial, 2+ carotid Rest of the exam is non contributory Internal Med - H&P Results - Diagnostic Studies Chest x-ray Status: image reviewed by me (Right-sided hilar mass seen, effusion filling almost half of the lower right hemithorax) - Assessment and Plan (1) Acute respiratory failure with hypoxia Current Visit: Yes Status: Acute Assessment and plan: Acute on chronic respiratory failure in the setting of recently diagnosed right lung mass as well as worse pleural effusions on the right side Differential diagnosis that this is a malignant pleural effusion is very high. The patient does not have a white count or fever history and not a strong history of sick contacts in the recent past. Hence a diagnosis of parapneumonic effusion is lower on the differential. We will check a liver panel which was not checked till now and an INR and subsequent to that I will place a consult for interventional radiology to perform a diagnostic and therapeutic thoracentesis. We will also try and obtain cytology results I will also consult oncology for their input Continue supplemental oxygen and consider BiPAP if her respiratory status worsens. I will keep her nothing by mouth till the tap was done and start her on a regular diet thereafter. (2) Pleural effusion Current Visit: No Status: Acute Assessment and plan: As mentioned above, most likely differential at this point is malignant pleural effusion. Given the fact that this is most likely malignant effusion, after her initial thoracentesis we may consider getting pulmonary service involved since their input will be likely needed if this turns out to indeed be a malignant effusion given the high chance of recurrence For now we will start with consulting IR for a thoracentesis-diagnostic and therapeutic and go from there. Like as mentioned above, my suspicion that this is a parapneumonic effusion as low (3) Essential hypertension Current Visit: No Status: Chronic Assessment and plan: Continue antihypertensives. Monitor blood pressure while inpatient (4) Tobacco abuse Current Visit: No Status: Chronic Assessment and plan: 50+ year pack history of smoking. Patient states that she quit a few days ago. Again emphasized the importance of not smoking anymore (5) Lung cancer Current Visit: No Status: Acute Assessment and plan: This is a little confusing diagnosis at this point and for which I will be seeking oncology input. According to the patient's daughter who was spoken over the phone, she believes the patient has a history of hepatitis C and hepatocellular carcinoma which has metastasized to her lungs but there is a clear visualization of a lung mass which is in the hilar region on the right side in the latest x-ray . Patient was supposed to follow-up with oncology to see establish a malignancy treatment plan. Given so many variables I will consult oncology and await cytology results. Qualifiers: Laterality: right Lung location: hilum of lung Qualified Code(s): C34.01 - Malignant neoplasm of right main bronchus - Summary of Assessment and Plan Summary of Assessment and Plan: We will initiate subcutaneous heparin twice a day for DVT prophylaxis. The patient also wishes to be a full code at this time - Time Spent With Patient Total time spent is greater than 50% in coordination of care (as documented) at patient's floor/unit and/or counseling patient: Greater than 35 minutes (Total time spent in [id number] counseling is greater than 70 minutes)
[2018-12-13 11:10] LABS: Alanine Aminotransferase 88 Units/L (7-52); Albumin 2.9 g/dL (3.5-5.7); Albumin/Globulin Ratio 0.8 (1.1-2.2); Alkaline Phosphatase 489 Units/L (34-104); Aspartate Amino Transferase 57 Units/L (13-39); BUN/Creatinine Ratio 41 (6-26); Bilirubin,Total 0.5 mg/dL (0.3-1.0); Blood Urea Nitrogen 19 mg/dL (8-23); Calcium 8.8 mg/dL (8.6-10.3); Carbon Dioxide 32 mEq/L (23-29); Chloride 105 mEq/L (98-107); Globulin 3.5 g/dL (2.4-3.5); Glucose 80 mg/dL (70-105); Osmolality,Calculated 297 (280-300); Potassium 4.1 mEq/L (3.5-5.1); Sodium 143 mEq/L (136-145); Total Protein 6.4 g/dL (6.4-8.9); eGFR For Non-African Americans > 60 (> 60)
[2018-12-13 11:17] LABS: INR 1.1; Prothrombin Time 12.3 Seconds (9.4-12.1)
[2018-12-13] MEDS: Aspirin Enteric Coated 81 MG Tablet PO SCH (11:25)
[2018-12-13] MEDS: Diltiazem CD (24hr) 120 MG CAPSULE PO SCH (11:25)
--- NOTE | 2018-12-13 11:51 | IR Procedure Note ---
Date of procedure: 12/13/18 Consent Obtained: Verbal consent, Written consent Timeout: Correct patient and procedure verified, Correct site verified, Time out performed, Skin prep completed Local anesthetic: Lidocaine 1% Indications: pleural effusion Procedure Performed: right thoracentesis Was there an shop assistant present: Yes Canvas Cutter Hand: Serafin Hernandez Site/Technique: left thoracentesis Results/Findings: straw colored fluid Estimated blood loss (cc): 0 Complications: None; Tolerated procedure well Post Procedure Treatment Plan: remain on floor, XR chest Specimen: straw colored fluid
--- NOTE | 2018-12-13 12:44 | Oncology Inp Consult Note ---
<Tian Worthy - Last Filed: 12/13/18 16:55> Date of Encounter: 12/13/18 Time of Encounter: 16:56 - Data of Consult Requesting Physician: Esvin Ascencio MD Primary Care Provider: PCP NONE Medications and Allergies Diltiazem CD (24hr) [Cardizem CD] 120 mg PO DAILY #30 cap.er.24h 01/12/17 [Rx] Aspirin [Lo-Dose Aspirin EC] 81 mg PO DAILY 03/16/17 [History] Albuterol Sulfate [Ventolin Hfa] 2 puff IH Q4H PRN 04/16/18 [History] Omeprazole [PriLOSEC] 40 mg PO DAILY 04/16/18 [History] Ipratropium/Albuterol Neb [Duoneb] 3 ml IH [id number] PRN inhsol 04/17/18 [Rx] HydrOXYzine Pamoate [Vistaril] 50 mg PO TID PRN 12/01/18 [History] Allergy/AdvReac Type Severity Reaction Status Date / Time acetaminophen [From Tylenol] Allergy See Verified 04/16/18 21:56 Comments ibuprofen Allergy See Verified 04/16/18 21:56 Comments Consult Discharge Plan - Plan Referrals: NONE,PCP [Primary Care Provider] - Inpatient Charges Provider: Dr. Angela Worthy Consult - Inpatient: [id number] - Attending Attestation I examined this patient and my medical decision-making was reviewed with the Advanced Practice Nurse. I agree with the documented findings, disposition and treatment plan as described except to the extent set forth below. -Will c/s IR to perform liver biopsy and breast biopsy. -S/p thoracentesis. Will f/u on cytology and flow cytometry -Will complete staging with an MRI of the Head w/ contrast and CT A/P w/ cont rast -Will perform anemia w/u <Vilma Laura - Last Filed: 12/13/18 17:21> Date of Encounter: 12/13/18 Assessment and Plan (1) Mass of upper lobe of right lung Status: Acute Assessment and plan: CT of the chest revealed large medial right upper lobe mass contiguous with the hilum and mediastinum. This mass and adenopathy effaces the superior vena cava and surrounds the right mainstem bronchus and proximal right upper lobe airways. More peripheral areas of ill-defined mass/consolidation are noted in the right upper lobe with pleurally based density as well. Within the abdomen, the liver is extremely heterogeneous containing multiple masses consistent with diffuse metastatic disease. Liver lesions are new since prior study. Right breast masses identified. Small right pleural effusion. Left-sided pulmonary nodule, right basilar pulmonary nodule, and ground-glass opacities in the left lung. S/P therapeutic and diagnostic thoracentesis today 12/13/18 Plan: AFP and Hepatitis profile pending Cytology from thoracentesis is pending-add flow cytometry Plan to pursue biopsy of liver lesion with IR tomorrow Consult with mammo to discuss diagnostic mammogram with targeted US-inpatient vs. outpatient Further staging with CT abdomen/pelvis w/contrast and MRI head wo/w Further treatment recommendations pending pathology, patient states she is interested in pursuing treatment options Check CEA, CA 15-3 (2) Anemia Status: Acute Assessment and plan: Normocytic anemia, hgb 10.8 Plan: Plan for anemia workup with iron profile, ferritin, LDH, B12, folate, retic count, PTT, haptoglobin, fibrinogen Qualifiers: Qualified Code(s): D64.9 - Anemia, unspecified - Data of Consult Patient: new to practice Consult date: 12/13/18 Requesting Physician: Esvin Ascencio MD Primary Care Provider: PCP NONE - Consult Narrative Reason for consult: lung mass/nodules,liver masses, breast mass History of present illness: Ms. Flores is a 68 year old female with past medical history significant for arthritis, asthma, cancer, COPD, CAD, CVA, GERD, hypertension, myocardial infarction. There is also a questionable history of hepatitis C. She initially presented to [facility] emergency room for progressive shortness of breath status and worsening over the past 2-3 days 12/01/2018. CT of the chest revealed large medial right upper lobe mass contiguous with the hilum and mediastinum. This mass and adenopathy effaces the superior vena cava and surrounds the right mainstem bronchus and proximal right upper lobe airways. More peripheral areas of ill-defined mass/consolidation are noted in the right upper lobe with pleurally based density as well. Within the abdomen, the liver is extremely heterogeneous containing multiple masses consistent with diffuse metastatic disease. Liver lesions are new since prior study. Right breast masses identified. Small right pleural effusion. Left-sided pulmonary nodule, right basilar pulmonary nodule, and ground-glass opacities in the left lung. Patient left AMA with outpatient follow up at [facility]. She returned to [facility] ER for continued worsening of SOB on 12/13/2018. She was transferred to [facility] for further management. There is documentation that in speaking with patients daughter that patient has been diagnosed with metastatic HCC and apparently is aware of her lung and breast lesion. Upon further questioning patient states she is a patient of the [facility] and previously followed with Dr. Callahan. Upon review of records patient was last seen at the [facility] on 04/04/2014. At that time she was noted to have an isolated liver mass measuring 2.4 x 2.[address]-guided biopsy of the liver lesion on 04/08/2014 which was negative for malignancy. CT of the chest was negative at this time as well. She had an MRI of the abdomen in April 2014 had shown reduction in the size of the mass. She was plan for repeat CT of the abdomen and pelvis in about 3 months time however did not return to follow up appointments. Patient herself appears to be a poor historian. She denies fever, chills, chest pain, abdominal pain, nausea, vomiting. She does endorse worsening shortness of breath over the past several days. She also endorses weight loss but is unable to tell me much weight she has lost. She lives at home alone, resides near [place]. Patient states she is a former smoker having quit last Monday, she has smoked for nearly 50 years. Denies alcohol use. Denies history of cancer. Past Med Surg Social Fam HX - Past Medical History Medical history: arthritis, asthma, cancer, COPD, coronary artery disease, CVA, GERD, hypertension, malignancy, myocardial infarction Additional medical history: LUNG CA Psychiatric history: anxiety, depression - Past Surgical History Surgical History: cholecystectomy, other Additional surgical history: chest tube - Social History Smoking Status: Former smoker (Patient has almost 40-50 years of smoking history one pack a day and has quit 4 days ago. She does not have history of alcohol abuse) Smokeless Tobacco Status: No Alcohol use: none Drug use: none - Family History Mother History Unknown: Yes Living Status: Hx Family Cardiac Disorders: Yes Father History Unknown: Yes Living Status: Constitutional: Present: anorexia, fatigue, headache(s), weakness, weight loss. Absent: chills, fever(s), frequent falls, night sweats Eyes: Absent: change in vision Nose, mouth and throat: Absent: dysphagia, odynophagia Cardiovascular: Absent: chest pain Respiratory: Present: cough, dyspnea Gastrointestinal: Absent: abdominal pain, change in bowel habits, hematemesis, hematochezia, melena, nausea, vomiting Genitourinary: Absent: dysuria Musculoskeletal: Present: muscle weakness Integumentary: Absent: rash, wounds Neurological: Absent: focal weakness, frequent falls Psychiatric: Present: as per HPI Hematologic/Lymphatic: Present: as per HPI Oncology - Exam - Constitutional General appearance: cooperative, disheveled, no acute distress, no febrile - Head Head exam: Present: atraumatic - ENT ENT exam: Present: mucous membranes moist, normal oropharynx - Neck Additional comments: no edema or enlarged neck veins - Respiratory Respiratory exam: Present: decreased breath sounds. Absent: respiratory distress - Cardiovascular Cardiovascular exam: Present: RRR, +S1, +S2 - GI/Abdominal GI/Abdominal exam: Present: normal bowel sounds, soft. Absent: tenderness Additional comments: slightly distended to mid abd - Extremities Exam Extremities exam: Present: normal inspection. Absent: calf tenderness - Neurological Exam Neurological exam: Present: alert, oriented X3, no focal deficits, strengths equal and symetr throughout - Psychiatric Psychiatric exam: Present: normal affect, normal mood - Skin Skin exam: Present: dry, intact, normal color, warm
[2018-12-13] MEDS ORDERED: *HR* Heparin 5,000 UNIT/ML VIAL SQ SCH (14:00)
[2018-12-13 15:17] LABS: % Iron Saturation 22 % (15-50); Iron 60 mcg/dL (50-170); Lactate Dehydrogenase 348 Units/L (140-271); Transferrin 195 mg/dL (203-362)
[2018-12-13 15:32] LABS: Ferritin 148 ng/mL (10-120)
[2018-12-13 15:37] LABS: Folate 9.6 ng/mL (3.0-16.0)
[2018-12-13 15:38] LABS: Vitamin B12 567 pg/mL (250-1100)
[2018-12-13 16:08] LABS: Glucose,Pleural Fluid 87 mg/dL (No Ref Range); LDH,Pleural Fluid 182 Units/L (No Ref Range); Total Protein,Pleural Fluid < 3.0 g/dL (No Ref Range)
[2018-12-13 16:34] LABS: Appearance of Pleural Fl Hazy (Clear)
[2018-12-13] MEDS ORDERED: Gadolinium Contrast Agent (WT Based) IV PRN (17:13)
[2018-12-13] MEDS ORDERED: Isovue-370 500 ML BOTTLE IVP ONE (17:13)
[2018-12-13 19:55] LABS: Hepatitis B Surface Antigen Nonreactive (Nonreactive)
[2018-12-13 20:24] LABS: Hepatitis C Virus Antibody Nonreactive (Nonreactive)
[2018-12-13 20:25] LABS: Hepatitis B Core IgM Nonreactive (Nonreactive)
[2018-12-13 20:26] LABS: Hepatitis A Antibody IgM Nonreactive (Nonreactive)
[2018-12-13] MEDS ORDERED: hydrOXYzine pamoate 25 MG CAPSULE PO ONE (21:25)
[2018-12-14 06:21] LABS: Basophils # 0.1 K/mcL (0.0-0.2); Basophils % 0.5 %; Eosinophils # 0.1 K/mcL (0.0-0.6); Eosinophils % 0.7 %; Immature Granulocytes % 0.4 % (0-4); Immature Reticulocyte % 18.1 % (11.0-38.0); Lymphocytes # 1.6 K/mcL (0.6-4.6); Lymphocytes % 15.9 %; Mean Corpuscular HGB Conc 32.4 g/dL (31.6-35.5); Mean Corpuscular Hemoglobin 28.6 pg (28.0-33.3); Mean Corpuscular Volume 88.3 fL (83.0-100.0); Mean Platelet Volume 8.8 fL (9.4-12.4); Monocytes # 0.5 K/mcL (0.0-1.3); Monocytes % 5.3 %; Neutrophils # 7.6 K/mcL (1.6-8.9); Platelet Count 292 K/mcL (140-400); Red Blood Count 3.85 M/mcL (3.82-4.97); Red Cell Distribution Width 17.2 % (11.5-14.5); Retculocyte # 0.07 M/mcL (0.05-0.10); Reticulocyte % 1.9 % (1.6-2.8); Segmented Neutrophils % 77.2 %
[2018-12-14 06:31] LABS: Activated Partial Thrombo Time 26.2 Seconds (26.0-36.0)
[2018-12-14 06:33] LABS: BUN/Creatinine Ratio 37 (6-26); Blood Urea Nitrogen 18 mg/dL (8-23); Calcium 9.1 mg/dL (8.6-10.3); Carbon Dioxide 32 mEq/L (23-29); Chloride 102 mEq/L (98-107); Glucose 85 mg/dL (70-105); Osmolality,Calculated 297 (280-300); Potassium 4.1 mEq/L (3.5-5.1); Sodium 143 mEq/L (136-145); eGFR For Non-African Americans > 60 (> 60)
[2018-12-14] MEDS ORDERED: Levofloxacin 750 MG/150 ML 750 MG/150 ML BAG IVPB SCH (09:00)
[2018-12-14] MEDS: Diltiazem CD (24hr) 120 MG CAPSULE PO SCH (09:03)
[2018-12-14] MEDS: Aspirin Enteric Coated 81 MG Tablet PO SCH (09:03)
[2018-12-14] MEDS ORDERED: 0.9 % Sodium Chloride 500 ML ONE (09:35)
[2018-12-14] MEDS ORDERED: *HR* FentaNYL (PF) 100 MCG/2 ML VIAL IVP ONE (09:48)
[2018-12-14] MEDS ORDERED: *HR* FentaNYL (PF) 100 MCG/2 ML VIAL ONE (09:52)
--- NOTE | 2018-12-14 10:16 | IR Procedure Note ---
Date of procedure: 12/14/18 Consent Obtained: Verbal consent, Written consent Timeout: Correct patient and procedure verified, Correct site verified, Time out performed, Skin prep completed Local anesthetic: Lidocaine 1% Indications: Liver masses Procedure Performed: CT guided liver mass biopsy Was there an hospital administrative assistant present: No Site/Technique: CT guided liver mass biopsy performed Results/Findings: 5 18 gauge core needle biopsies obtained Estimated blood loss (cc): 2 Complications: None; Tolerated procedure well Post Procedure Treatment Plan: Continue inpatient care Specimen: 5 18 gauge core needle biopsies
[2018-12-14] MEDS ORDERED: *HR* Metoprolol 5 MG/5 ML VIAL IVP PRN (10:35)
[2018-12-14] MEDS ORDERED: *HR* Metoprolol 5 MG/5 ML VIAL IVP ONE (10:35)
[2018-12-14] MEDS: Levalbuterol Neb 1.25 MG/3 ML IH SCH ×2 (11:15→22:18)
[2018-12-14 11:24] VITALS: BP 101/48
--- NOTE | 2018-12-14 11:24 | Internal Med Progress Note ---
Hospitalist Progress Note - Encounter Date of Encounter: 12/14/18 Time of Encounter: 11:00 - Subjective Interval History: Patient had liver biopsy this morning, returned in AFlutter RVR. She denied chest pain or palpitations, or worsened shortness of breath. I spoke with her daughter informing her that Oncology is planning the work up in terms of malign jb. - Exam Vitals: Temp Pulse Resp BP Pulse Ox 98.6 F 129 230 116/74 92 12/14/18 08:20 12/14/18 10:06 12/14/18 10:06 12/14/18 10:06 12/14/18 10:06 - Assessment and Plan (1) Tobacco abuse Current Visit: No Status: Chronic (2) Essential hypertension Current Visit: No Status: Chronic (3) Pleural effusion Current Visit: No Status: Acute (4) Lung cancer Current Visit: No Status: Acute (5) Acute respiratory failure with hypoxia Current Visit: Yes Status: Acute - Time Spent with Patient Total time spent is greater than 50% in coordination of care (as documented) at patient's floor/unit and/or counseling patient: Internal Medicine: Result - Labs CBC & Chem 7: 12/14/18 06:00 12/14/18 06:00 Labs: Short CBC 12/14/18 Range/Units 06:00 WBC 9.9 (4.3-11.1) K/mcL Hgb 11.0 L (11.5-15.4) g/dL Hct 34.0 L (35.3-44.9) % Plt Count 292 (140-400) K/mcL Neutrophils # 7.6 (1.6-8.9) K/mcL BMP 12/14/18 06:00 Sodium 143 Potassium 4.1 Chloride 102 Carbon Dioxide 32 H BUN 18 Creatinine 0.49 L Glucose 85 Calcium 9.1 - ABG Interpretation ABG results: PT/INR, D-dimer PT 12.3 Seconds (9.4-12.1) H 12/13/18 10:20 - Impressions Impressions Thoracentesis 12/13/18 09:34 IMPRESSION: Successful ultrasound guided thoracentesis. D/ / Serafin Hernandez MD / Serafin Hernandez MD Interpreting Provider: Serafin Hernandez MD Chest X-Ray 12/13/18 11:48 IMPRESSION: Tiny 4 mm pneumothorax. Much decreased pleural effusion with improved aeration of the right lung after thoracentesis. D/ / Saurav Fried MD / Saurav Fried MD Interpreting Provider: Saurav Fried MD Abdomen/Pelvis CT 12/13/18 17:13 IMPRESSION: Small anterior pneumothorax on the right. This was identified on recent chest x-ray., and likely related to recent thoracentesis Nodularity is seen in the lungs, greatest in the right middle lobe, presumably metastatic.. Small right-sided pleural effusion is seen. Innumerable liver metastasis, which appear slightly increased from prior chest CT Right breast nodularity D/ / Edgard Newsome MD / Edgard Newsome MD Interpreting Provider: Edgard Newsome MD Brain MRI 12/13/18 17:13 IMPRESSION: Incomplete study. No obvious intracranial mass identified. D/ / Sadiq Murillo MD / Sadiq Murillo MD Interpreting Provider: Sadiq Murillo MD Consult Discharge Plan - Plan Referrals: NONE,PCP [Primary Care Provider] - (4) Lung cancer Qualifiers: Laterality: right Lung location: hilum of lung Qualified Code(s): C34.01 - Malignant neoplasm of right main bronchus
--- NOTE | 2018-12-14 12:14 | Oncology Inp Progress Note ---
<Vilma Moy L - Last Filed: 12/14/18 13:29> Date of Encounter: 12/14/18 Time of Encounter: 13:00 (1) Mass of upper lobe of right lung Current Visit: Yes Status: Acute Assessment and plan: CT of the chest revealed large medial right upper lobe mass contiguous with the hilum and mediastinum. This mass and adenopathy effaces the superior vena cava and surrounds the right mainstem bronchus and proximal right upper lobe airways. More peripheral areas of ill-defined mass/consolidation are noted in the right upper lobe with pleurally based density as well. Within the abdomen, the liver is extremely heterogeneous containing multiple masses consistent with diffuse metastatic disease. Liver lesions are new since prior study. Right breast masses identified. Small right pleural effusion. Left-sided pulmonary nodule, right basilar pulmonary nodule, and ground-glass opacities in the left lung. S/P therapeutic and diagnostic thoracentesis 12/13/18 AFP normal Hepatitis panel negative CEA mildly elevated around 10 CA 15-3 pending MRI brain-Incomplete study. No obvious intracranial mass identified. CT abdomen/pelvis- Small anterior pneumothorax on the right. Nodularity is seen in the lungs, greatest in the right middle lobe, presumably metastatic. Small right-sided pleural effusion is seen. Innumerable liver metastasis, which appear slightly increased from prior chest CT. Right breast nodularity Plan: Doppler of the BLE for noted edema Cytology from thoracentesis is pending-add flow cytometry S/P biopsy of liver lesion today- patient returned back to floor in A flutter with RVR She is planned for outpatient diagnostic mammogram, right breast US and biopsy as an outpatient next week-appointment will be given to patint Staging with MRI head and abdomen pelvis completed as above Further treatment recommendations pending pathology, patient states she is interested in pursuing treatment options Differential list remains extensive, this could represent metastatic lung, breast, HCC/cholangiocarcinoma, among others. The differential for 2 separate primary malignancies is also a possibility. Small cell is within the differential, we discussed that given this potential we would prefer patient to remain inpatient over weekend until preliminary pathology could be discussed early next week however patient appears quite adamant that she is leaving (2) Anemia Current Visit: Yes Status: Acute Assessment and plan: Normocytic anemia, hgb 10.8 B12/ Folate/ Iron replete LDH mildly elevated Plan: Continue to monitor hgb Qualifiers: Qualified Code(s): D64.9 - Anemia, unspecified Oncology: Subj Interval history: Ms. Flores was examined at bedside. She is agitated and asking to leave. Encouraged her to stay given multiple issues needing workup and potential inpatient chemotherapy treatment, but patient not willing to listen to reasoning. She denies pain and states she feels great and wishes to go home. She is very agitated and not willing to listen to our concern for her multiple issues needing further workup. - Constitutional General appearance: average body habitus, no acute distress, no febrile - Head Head exam: Present: atraumatic - ENT ENT exam: Present: mucous membranes moist, normal oropharynx - Respiratory Respiratory exam: Present: decreased breath sounds. Absent: respiratory distress - Cardiovascular Cardiovascular exam: Present: irregular rhythm, +S1, +S2, tachycardia - GI/Abdominal GI/Abdominal exam: Present: normal bowel sounds, soft. Absent: tenderness - Extremities Exam Extremities exam: Present: pedal edema Additional comments: 1+pitting BLE edema - Neurological Exam Neurological exam: Present: alert, oriented X3, no focal deficits, strengths equal and symetr throughout - Psychiatric Psychiatric exam: Present: agitated, anxious - Skin Skin exam: Present: dry, intact, normal color, warm - Additional findings Additional findings: Right breast exam with no discrete mass palpable on exam, patient does have cystic breast tissue making examination difficult Oncology: Obj Data - Labs CBC & Chem 7: 12/14/18 06:00 12/14/18 06:00 Consult Discharge Plan - Plan Referrals: NONE,PCP [Primary Care Provider] - Prescriptions: RX: Metoprolol [Lopressor] 12.5 mg PO BID 30 Days #15 tablet Inpatient Charges Provider: Dr. Benito Kaufman <Rachel Kaufman - Last Filed: 12/14/18 16:39> Date of Encounter: 12/14/18 Oncology: Subj Interval history: Diagnostic imaging report consistent with lung mass, liver lesions/?mets, prior bx non diagnostic. She is s/p liver bx. awaiting results. Discussed need for treatment after diagnosis is established, pt is agreeable. She is SOB and tachycardic at rest/min exertion, insisting that she wants to go home and come back. I examined this patient and my medical decision-making was reviewed with the Advanced Practice Nurse, Vilma Moy. I agree with the documented findings, disposition and treatment plan as described except to the extent set forth below. Oncology: Obj Data - Labs CBC & Chem 7: 12/14/18 06:00 12/14/18 06:00 Inpatient Charges Provider: Dr. Benito Kaufman Follow up - Inpatient: [id number]
--- NOTE | 2018-12-14 14:36 | Discharge Summary ---
<Lorenzo Piña Terry - Last Filed: 12/14/18 16:32> - NOTES TO OUTPATIENT PROVIDER Notes to Outpatient Provider: Patient was admitted for evaluation for shortness of breath. Imaging revealed significant mass and pleural effusion in right chest. Further evaluation demonstrated significant metastatic disease in liver, lungs, breast. Oncology evaluated and recommended inpatient chemotherapy. Patient denied and elected to leave AGAINST MEDICAL ADVICE. Oncology follow-up scheduled outpatient. Orders not resulted at time of discharge: Pending orders 12/13/18 11:45 Albumin,Body Fluid Routine 12/13/18 13:56 Cytology [PTH] Routine 12/13/18 14:28 AFP Tumor Marker Non- Routine 12/13/18 17:13 Tissue Flow Cytometry Routine 12/14/18 IR us guide vascular access [IR] Routine 12/14/18 06:00 Cancer Antigen-Breast (CA 15-3 AM 0400 Haptoglobin AM 0400 12/14/18 10:37 EKG [ECG 12 lead ECG] [ECG] Stat 12/14/18 13:26 Venous Doppler [EV venous imaging LE BI] Routine Date of Encounter: 12/14/18 Time of Encounter: 14:34 - Discharge Diagnosis (1) Metastasis Priority: Primary Status: Acute Assessment and Plan: Patient presented with shortness of breath, imaging demonstrated mass and pleural effusion in right lung Interventional radiology performed thoracentesis with improvement in patient's clinical disposition Oncology was consulted to evaluate lung mass, patient has had workup in the past but specifics are not clear Imaging revealed significant diffuse metastatic lesions in the liver, lungs, breast Liver biopsy was performed, patient was recommended to stay inpatient to start chemotherapy Patient elected to leave AGAINST MEDICAL ADVICE and pursue outpatient follow-up with oncology She was informed of the risk and benefits of leaving AGAINST MEDICAL ADVICE including the risks of permanent injury, delay in treatment, Discharge home, outpatient oncology follow-up scheduled, pending biopsy pathology and thoracentesis cytology Qualifiers: Area of secondary neoplastic involvement: other site Qualified Code(s): C79.89 - Secondary malignant neoplasm of other specified sites (2) Pleural effusion Priority: Secondary Status: Resolved Assessment and Plan: Likely secondary to malignancy, cytology pending (3) Acute respiratory failure with hypoxia Priority: Secondary Status: Resolved Assessment and Plan: Secondary to pleural effusion, resolved with therapeutic and diagnostic thoracentesis (4) Atrial flutter Priority: Secondary Status: Acute Assessment and Plan: Patient developed tachycardia after liver biopsy Blood pressure remained stable, patient did not complain of chest pain or palpitations EKG demonstrated atrial flutter with rapid ventricular rate IV metoprolol was given and rate decreased to around 100 Patient was recommended to stay in hospital for management of new onset atrial flutter including rate control and potential anticoagulation Patient elected to leave AGAINST MEDICAL ADVICE despite risks of permanent injury, delay in treatment, she was informed of She was discharged with new prescription of metoprolol for rate control Qualifiers: Atrial flutter type: unspecified Qualified Code(s): I48.92 - Unspecified atrial flutter Hospital course: Ms. Flores is a 68 year old female with past medical history of COPD, asthma, c oronary artery disease, CVA, hypertension, myocardial infarction, home O2. Her past history of cancer is difficult to confirm. She presented for shortness of breath and was found to have large right-sided lung mass and pleural effusion which was treated with diagnostic and therapeutic thoracentesis by interventional radiology. Further imaging demonstrated innumerable metastases to the liver, lungs, breast of unknown primary malignancy. Oncology also evaluated the patient and recommended liver biopsy which was also performed by interventional radiology. After liver biopsy patient developed atrial flutter which was treated with IV metoprolol for rate control. Medicine recommended that the patient stay inpatient for treatment of atrial flutter, comorbidities, malignancy. Oncology recommended that the patient stay in the hospital to begin chemotherapy inpatient. The patient elected to leave AGAINST MEDICAL ADVICE. Discharge discussed with: patient, client insights consultant - Time Spent with Patient Total time spent providing and/or coordinating discharge services: - Discharge Medications Prescriptions: New Metoprolol [Lopressor] 12.5 mg PO BID 30 Days #15 tablet Continue Aspirin [Lo-Dose Aspirin EC] 81 mg PO DAILY Albuterol Sulfate [Ventolin Hfa] 2 puff IH Q4H PRN PRN Reason: Shortness Of Breath Omeprazole [PriLOSEC] 40 mg PO DAILY Ipratropium/Albuterol Neb [Duoneb] 3 ml IH [id number] PRN inhsol PRN Reason: Shortness Of Breath/Wheezing Diltiazem CD (24hr) [Cardizem CD] 120 mg PO DAILY #30 cap.er.24h HydrOXYzine Pamoate [Vistaril] 50 mg PO TID PRN PRN Reason: Anxiety Home Medications: Diltiazem CD (24hr) [Cardizem CD] 120 mg PO DAILY #30 cap.er.24h 01/12/17 [Rx] Aspirin [Lo-Dose Aspirin EC] 81 mg PO DAILY 03/16/17 [History] Albuterol Sulfate [Ventolin Hfa] 2 puff IH Q4H PRN 04/16/18 [History] Omeprazole [PriLOSEC] 40 mg PO DAILY 04/16/18 [History] Ipratropium/Albuterol Neb [Duoneb] 3 ml IH [id number] PRN inhsol 04/17/18 [Rx] HydrOXYzine Pamoate [Vistaril] 50 mg PO TID PRN 12/01/18 [History] Metoprolol [Lopressor] 12.5 mg PO BID 30 Days #15 tablet 12/14/18 [Rx] Allergies/Adverse Reactions: Allergy/AdvReac Type Severity Reaction Status Date / Time acetaminophen [From Tylenol] Allergy See Verified 12/14/18 08:15 Comments ibuprofen Allergy See Verified 12/14/18 08:15 Comments Date of admission: 12/13/18 04:07 Primary care physician: PCP NONE Consults: 12/13/18 09:35 Consult to Interventional Radiology [CONS] Routine Consulting Provider: Radiology [facility] Reason for Consult: Right sided Pleural effusion. Please send Cytology. Recent Diagnosis of Lung CA w mets Time Notified: 09:36 Call Completed: Yes 12/13/18 10:24 Consult to Oncology [CONS] Routine Consulting Provider: [facility] Reason for Consult: Lung Hilar mass . H of Hepatocellular ca? Pleural effusion/ IR Thoracentesis ordered Time Notified: 10:25 Call Completed: Yes 12/13/18 17:13 Consult to Interventional Radiology [CONS] Routine Consulting Provider: Radiology Interventional [facility] Reason for Consult: CT guided bx liver lesion Call Completed: No Discharging clinician: Lorenzo Piña Anticipated date of discharge: 12/14/18 - Constitutional Vitals: Temp Pulse Resp BP Pulse Ox 98.5 F 120 20 101/48 93 12/14/18 11:23 12/14/18 11:23 12/14/18 11:23 12/14/18 11:23 12/14/18 11:23 Exam: GENERAL: Alert, minimal distress, cooperative, able to complete sentences EYES: PERRLA, EOMI EARS: External ears normal, canals clear OROPHARYNX: Lips, mucosa, and tongue normal. Teeth and gums normal. Oropharynx normal. NECK: No jugulovenous distention, No carotid bruits, Carotid pulse normal contour, Supple LUNGS: Lung sounds course and diminished, minimally decreased comparatively in right base CARDIAC: Tachycardic rate and irregularly irregular rhythm, no rubs/murmurs/gallop ABDOMEN: Abdomen soft, non-tender, BS normal, No masses or organomegaly EXTREMITIES: 1+ pitting edema bilaterally, good capillary refill NEURO: Gait not tested Reflexes normal and symmetric. Sensation grossly intact, Cranial nerves II-XII intact PULSES: 2+ radial, 2+ carotid Rest of the exam is non contributory - Patient Status Disposition: Left Against Medical Advice Condition: Fair Functional capacity at discharge: independent ambulation Overall status at discharge: patient is back to baseline - Ambulatory Orders Ambulatory Orders: US breast RT [US] Time Frame: 12/20/18, Facility: [facility], Location: Radiology US biopsy breast RT w vac dev [US] Time Frame: 12/20/18, Facility: [facility], Location: Radiology MM diagnostic mammo BI [MM] Time Frame: 12/20/18, Facility: [facility], Location: Radiology - Discharge Instructions Follow Up With: NONE,PCP [Primary Care Provider] - - Diet and Activity Activity: resume usual activities as tolerated Diet: advance to your usual diet <Gold Rosales - Last Filed: 12/14/18 17:12> Date of Encounter: 12/14/18 Date of admission: 12/13/18 04:07 Primary care physician: PCP NONE Consults: 12/13/18 09:35 Consult to Interventional Radiology [CONS] Routine Consulting Provider: Radiology [facility] Reason for Consult: Right sided Pleural effusion. Please send Cytology. Recent Diagnosis of Lung CA w mets Time Notified: 09:36 Call Completed: Yes 12/13/18 10:24 Consult to Oncology [CONS] Routine Consulting Provider: [facility] Reason for Consult: Lung Hilar mass . H of Hepatocellular ca? Pleural effusion/ IR Thoracentesis ordered Time Notified: 10:25 Call Completed: Yes 12/13/18 17:13 Consult to Interventional Radiology [CONS] Routine Consulting Provider: Radiology Interventional [facility] Reason for Consult: CT guided bx liver lesion Call Completed: No - Attending Attestation Patient seen and examined. I agree with the discharge plan as documented above by the resident. Pt w widely metastatic disease of unknown primary, with extensive liver and lung mets, p/w SOB which improved after after IR thoracentesis of large pleural effusion. Sent for cytology. Subsequently, patient developed A-Fib RVR which improved with, but was not fully rate controlled with, metoprolol. Further workup including possible initiation of treatment planned per Onc consult team; however, pt opted to leave with outpatient follow up planned for next week. Refuses palliative involvement. Refuses to stay for further workup and treatment. Refuses to stay despite A-Fib RVR. Time spent on discharge: 35 minutes
--- NOTE | 2018-12-14 14:50 | Physician Discharge Referral ---
Home Health/Hosp Referral Info Transfer to: Home Health Attending Provider: sonny Provider in Charge Post Discharge: PCP - Diagnosis (1) Metastasis Priority: Primary Status: Acute (2) Pleural effusion Priority: Secondary Status: Resolved (3) Acute respiratory failure with hypoxia Priority: Secondary Status: Resolved (4) Tobacco abuse Priority: Secondary Status: Chronic (5) Essential hypertension Priority: Secondary Status: Chronic - Respiratory Orders Oxygen / L per min (3LNC) Smoking Cessation: Smoking cessation has been advised. For more information, call the [place] Tobacco Quit Line at 5-999-VOUR-NOW. - Diet/Nutrition Diet/Nutrition Orders: Regular - Activity Activity Orders: Up ad daryl - Services Needed Following services are medically necessary services: Nursing, Home Health Aide - Transfer Medications Home Medications: Diltiazem CD (24hr) [Cardizem CD] 120 mg PO DAILY #30 cap.er.24h 01/12/17 [Rx] Aspirin [Lo-Dose Aspirin EC] 81 mg PO DAILY 03/16/17 [History] Albuterol Sulfate [Ventolin Hfa] 2 puff IH Q4H PRN 04/16/18 [History] Omeprazole [PriLOSEC] 40 mg PO DAILY 04/16/18 [History] Ipratropium/Albuterol Neb [Duoneb] 3 ml IH [id number] PRN inhsol 04/17/18 [Rx] HydrOXYzine Pamoate [Vistaril] 50 mg PO TID PRN 12/01/18 [History] Allergies/Adverse Reactions: Allergy/AdvReac Type Severity Reaction Status Date / Time acetaminophen [From Tylenol] Allergy See Verified 12/14/18 08:15 Comments ibuprofen Allergy See Verified 12/14/18 08:15 Comments Certification: Further, I certify that my clinical findings support that this patient is homebound (i.e. absences from home require considerable and taxing effort and are for medical reasons or restorationism services or infrequently or short duration when for other reasons) because: Homebound Reason: Severity of cardiac or pulmonary status limits activity tolerance Attestation: My signature below is to certify that this patient is under my care and that I, or nurse practitioner, or a physician's blood and plasma laboratory assistant working with me, has a [id number] encounter with this patient.
[2018-12-16 06:19] LABS: Fluid Source for Albumin PLEURAL FLD
== END 2018-12-14 15:45 | disposition left against medical advice (07) ==
LOC: 3NENU → SUATTDRO 04:07
PROVIDERS: ADMIT Family Medicine; ATTEND Internal Medicine
PROC: IRLIVER (2018-12-14 14:00)

== ENCOUNTER 2019-01-05 07:24 | Inpatient (IN) ==
--- NOTE | 2019-01-05 07:30 | Emergency Department Note ---
Disposition Clinical Impression: Acute respiratory failure with hypoxia and hypercapnia, Acute exacerbation of chronic obstructive airways disease Disposition: Admitted As Inpatient Time of Disposition: 18:57 General Adult HPI - General Stated complaint: VIGNESH Time Seen by Provider: 01/05/19 07:26 Source: patient, EMS Mode of arrival: EMS Limitations: altered mental status Nursing Notes Reviewed: Yes Vital Signs Reviewed: Yes - History of Present Illness HPI Narrative: 68-year-old female presenting from home by EMS. Stated to have used her life alert call button today EMS responded at approximately 5:10 AM found patient slumped over in chair. EMS notes air-conditioner was running and patient was sitting by open window at the time of their arrival. EMS states that they administered 2 breathing treatments on scene obtained a blood glucose and a set of vitals. Patient initially refused transport. EMS states that police arrived on the scene to witness refusal of transport, shortly after patient lost consciousness and became altered at which time EMS assumed implied consent and transported to the ED. EMS states vitals were stable in route, glucose of 103. Patient satting in the 90% range on nonrebreather mask. Patient remained altered. No Narcan given in route Upon initial evaluation patient is alert painful stimuli, making incomprehensible sounds. Vitals were obtained rapidly and 2 mg of Narcan intravenously were ordered. Patient started on BiPAP. Patient responded to Narcan became alert and oriented. Patient able to answer simple review of systems questioning but appears to have slowed thought process and slurred speech. Patient currently denies headache, neck or back pain, chest pain, states that she feels she is getting adequate oxygen via BiPAP, she denies abdominal pain/nausea/vomiting any recent fever or chills. Patient appears to have Pleur-evac in place at the right anterior axillary line without suction. Concern for sepsis versus [place] versus stroke. 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 Severity: severe Associated symptoms: Reports: confusion Treatments Prior to Arrival: other (Bronchodilators) - Related Data Home Medications Medication Instructions Recorded Confirmed Aspirin [Lo-Dose Aspirin EC] 81 mg PO DAILY 03/16/17 01/02/19 Albuterol Sulfate [Ventolin Hfa] 2 puff IH Q4H PRN 04/16/18 01/02/19 Omeprazole [PriLOSEC] 40 mg PO DAILY 04/16/18 01/02/19 HydrOXYzine Pamoate [Vistaril] 50 mg PO TID PRN 12/01/18 01/02/19 Vitamin D 1,000 units PO DAILY 12/20/18 01/02/19 Previous Rx's Medication Instructions Recorded Diltiazem CD (24hr) [Cardizem CD] 120 mg PO DAILY #30 cap.er.24h 01/12/17 Ipratropium/Albuterol Neb [Duoneb] 3 ml IH [id number] PRN inhsol 04/17/18 Metoprolol [Lopressor] 12.5 mg PO BID 30 Days #15 tablet 12/14/18 predniSONE [PredniSONE] 20 mg PO QAM #5 tablet 12/22/18 Chair - Lift [LIFT CHAIR] 1 each .ROUTE AD #1 each 01/01/19 Lidocaine/Prilocaine [Emla] 1 appl TP DAILY #30 gm 01/01/19 Nicotine Patch [Nicoderm] 14 mg TD DAILY #30 patch.td24 01/01/19 Ondansetron HCl [Zofran] 4 mg PO Q6HR PRN #30 tablet 01/01/19 Oxycodone HCl 5 mg PO Q8HR 15 Days #45 tablet 01/01/19 Allergies Allergy/AdvReac Type Severity Reaction Status Date / Time acetaminophen [From Tylenol] Allergy See Verified 01/02/19 10:08 Comments ibuprofen Allergy See Verified 01/02/19 10:08 Comments All systems ED: reviewed and negative except as stated. Review of Systems: As Per HPI Constitutional: Denies: fever, chills Cardiovascular: Denies: chest pain Respiratory: Denies: dyspnea Gastrointestinal: Denies: abdominal pain, nausea, vomiting, diarrhea, constipation, hematemesis, melena, hematochezia Genitourinary: Denies: hematuria Musculoskeletal: Denies: back pain, neck pain Neurological: Denies: headache, weakness, numbness, paresthesias Past Medical History - Past Medical History Medical history: Reports: arthritis, asthma, cancer, CHF, COPD, coronary artery disease, CVA, GERD, hypertension, malignancy, myocardial infarction Surgical history: Reports: cholecystectomy, MILLA/BSO Psychiatric history: Reports: anxiety, depression 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 Absent: scleral icterus, conjunctival injection - Neck Neck exam: Present: normal inspection, trachea midline. Absent: lymphadenopathy - Chest Chest inspection: Present: normal inspection, symmetric chest wall rise - Respiratory Respiratory exam: Present: respiratory distress, wheezes, accessory muscle use, prolonged expiratory phase, other (Wheezes and scattered rhonchi bilaterally) - Cardiovascular Cardiovascular exam: Present: regular rate, normal rhythm, normal heart sounds, +S1, +S2. Absent: systolic murmur, diastolic murmur, JVD, +S3, +S4 - Abdominal Exam Abdominal exam: Present: soft, Non-Tender, normal bowel sounds. Absent: distention, guarding, rebound, rigidity, organomegaly - Extremities Exam Extremities exam: Present: pedal edema (2+ pitting edema noted in bilateral lower extremities) - Neurological Exam Neurological exam: Present: alert, oriented X3 - Psychiatric Psychiatric exam: Present: normal affect, normal mood - Skin Skin exam: Present: dry, pallor, other (Patient's extremities are cold to the touch, it is otherwise intact and dry, patient appears to be pale without c yanosis erythema or diaphoresis.). Absent: cyanosis, erythema Course Course Narrative: ED sepsis workup CT scan head and brain without contrast Continue BiPAP EKG/x-ray We will reassess Vital Signs Temperature 97.5 F L 01/05/19 07:23 Pulse Rate 98 01/05/19 07:23 Respiratory Rate 30 01/05/19 07:23 Blood Pressure 158/48 01/05/19 07:23 O2 Sat by Pulse Oximetry 95 01/05/19 07:23 Temperature 98.2 F 01/05/19 18:34 Pulse Rate 124 01/05/19 18:34 Respiratory Rate 24 01/05/19 18:34 Blood Pressure 101/67 01/05/19 18:34 O2 Sat by Pulse Oximetry 96 01/05/19 18:34 Oxygen Delivery Oxygen Delivery Bipap Medical Decision Making - MDM Narrative Medical decision making narrative: Patient admitted to hospitalist medicine service for further evaluation and management of COPD/CHF exacerbation. - Lab Data Lab results reviewed: Yes I reviewed the patient's lab results. Result diagrams: 01/05/19 13:48 01/05/19 17:56 Lab Results 01/05/19 01/05/19 01/05/19 Range/Units 07:51 08:40 08:40 WBC (4.3-11.1) K/mcL RBC (3.82-4.97) M/mcL Hgb (11.5-15.4) g/dL Hct (35.3-44.9) % MCV (83.0-100.0) fL MCH (28.0-33.3) pg MCHC (31.6-35.5) g/dL RDW (11.5-14.5) % Plt Count (140-400) K/mcL MPV (9.4-12.4) fL Immature Gran % (0-4) % Seg Neutrophils % % Lymphocytes % % Monocytes % % Eosinophils % % Basophils % % Neutrophils # (1.6-8.9) K/mcL Lymphocytes # (0.6-4.6) K/mcL Monocytes # (0.0-1.3) K/mcL Eosinophils # (0.0-0.6) K/mcL Basophils # (0.0-0.2) K/mcL PT 11.0 (9.4-12.1) Seconds INR 1.0 APTT 25.7 L (26.0-36.0) Seconds Sample Site L Radial ABG pH 7.25 L (7.32-7.45) pH Units ABG pCO2 88 H* (35-45) mmHg ABG pO2 53 L (85-104) mmHg ABG HCO3 39 H (21-27) mEq/L ABG Total CO2 41 H (20-26) mEq/L ABG O2 Saturation 79 L (95-98) % ABG Base Excess 9 H (-2 to 3) mEq/L Cricket Test N/A O2 Delivery Device BiPAP Inspired O2 50.0 (1-15=lpm [id number]=%) PEEP 6 cm H2O Sodium 138 (136-145) mEq/L Potassium 5.9 H (3.5-5.1) mEq/L Chloride 100 (98-107) mEq/L Carbon Dioxide 30 H (23-29) mEq/L BUN 38 H (8-23) mg/dL Creatinine 0.51 L (0.60-1.20) mg/dL Est GFR ( Amer) > 60 (> 60) Est GFR (Non-Af Amer) > 60 (> 60) BUN/Creatinine Ratio 75 H (6-26) Glucose 127 H (70-105) mg/dL Calculated Osmolality 297 (280-300) Lactic Acid (0.5-2.2) mmol/L Calcium 8.7 (8.6-10.3) mg/dL Phosphorus 4.4 (2.7-4.5) mg/dL Magnesium 2.0 (1.6-2.6) mg/dL Total Bilirubin 1.1 H (0.3-1.0) mg/dL Direct Bilirubin 0.6 H (0.0-0.2) mg/dL Indirect Bilirubin 0.5 (0.0-1.2) mg/dL AST 68 H (13-39) Units/L ALT 94 H (7-52) Units/L Alkaline Phosphatase 963 H (34-104) Units/L Troponin I 0.03 (< 0.04) ng/mL B-Natriuretic Peptide (Less than 100) pg/mL Serum Total Protein 6.0 L (6.4-8.9) g/dL Albumin 3.0 L (3.5-5.7) g/dL Globulin 3.0 (2.4-3.5) g/dL Albumin/Globulin Ratio 1.0 L (1.1-2.2) Lipase 243 H (11-82) Units/L Random Cortisol 26.1 mcg/dl Urine Color (Yellow) Urine Clarity (Clear) Urine pH (5.0-8.0) pH Units Ur Specific [place] (1.010-1.025) Urine Protein (Neg-Trace) mg/dL Urine Glucose (UA) (Normal) mg/dL Urine Ketones (Negative) mg/dL Urine Blood (Negative) Urine Nitrite (Negative) Urine Bilirubin (Negative) Urine Urobilinogen (Normal) mg/dL Ur Leukocyte Esterase (Negative) Urine Microscopic RBC (0-3) per hpf Urine Microscopic WBC (0-3) per hpf Ur Squamous Epith Cells (None-Few) per lpf Urine Bacteria (None-Few) per hpf Hyaline Casts (None-Few) per lpf Ur Culture Indicated? (NO) Specimen Rejected Person Notif of Crit rn and ,,md Blood Type Antibody Screen 01/05/19 01/05/19 01/05/19 Range/Units 08:40 08:40 09:01 WBC (4.3-11.1) K/mcL RBC (3.82-4.97) M/mcL Hgb (11.5-15.4) g/dL Hct (35.3-44.9) % MCV (83.0-100.0) fL MCH (28.0-33.3) pg MCHC (31.6-35.5) g/dL RDW (11.5-14.5) % Plt Count (140-400) K/mcL MPV (9.4-12.4) fL Immature Gran % (0-4) % Seg Neutrophils % % Lymphocytes % % Monocytes % % Eosinophils % % Basophils % % Neutrophils # (1.6-8.9) K/mcL Lymphocytes # (0.6-4.6) K/mcL Monocytes # (0.0-1.3) K/mcL Eosinophils # (0.0-0.6) K/mcL Basophils # (0.0-0.2) K/mcL PT (9.4-12.1) Seconds INR APTT (26.0-36.0) Seconds Sample Site ABG pH (7.32-7.45) pH Units ABG pCO2 (35-45) mmHg ABG pO2 (85-104) mmHg ABG HCO3 (21-27) mEq/L ABG Total CO2 (20-26) mEq/L ABG O2 Saturation (95-98) % ABG Base Excess (-2 to 3) mEq/L Cricket Test O2 Delivery Device Inspired O2 (1-15=lpm [id number]=%) PEEP cm H2O Sodium (136-145) mEq/L Potassium (3.5-5.1) mEq/L Chloride (98-107) mEq/L Carbon Dioxide (23-29) mEq/L BUN (8-23) mg/dL Creatinine (0.60-1.20) mg/dL Est GFR ( Amer) (> 60) Est GFR (Non-Af Amer) (> 60) BUN/Creatinine Ratio (6-26) Glucose (70-105) mg/dL Calculated Osmolality (280-300) Lactic Acid (0.5-2.2) mmol/L Calcium (8.6-10.3) mg/dL Phosphorus (2.7-4.5) mg/dL Magnesium (1.6-2.6) mg/dL Total Bilirubin (0.3-1.0) mg/dL Direct Bilirubin (0.0-0.2) mg/dL Indirect Bilirubin (0.0-1.2) mg/dL AST (13-39) Units/L ALT (7-52) Units/L Alkaline Phosphatase (34-104) Units/L Troponin I (< 0.04) ng/mL B-Natriuretic Peptide (Less than 100) pg/mL Serum Total Protein (6.4-8.9) g/dL Albumin (3.5-5.7) g/dL Globulin (2.4-3.5) g/dL Albumin/Globulin Ratio (1.1-2.2) Lipase (11-82) Units/L Random Cortisol mcg/dl Urine Color Dark Yellow (Yellow) Urine Clarity Cloudy A (Clear) Urine pH 5.0 (5.0-8.0) pH Units Ur Specific [place] 1.024 (1.010-1.025) Urine Protein Trace (Neg-Trace) mg/dL Urine Glucose (UA) Normal (Normal) mg/dL Urine Ketones Negative (Negative) mg/dL Urine Blood Negative (Negative) Urine Nitrite Negative (Negative) Urine Bilirubin Small H (Negative) Urine Urobilinogen Normal (Normal) mg/dL Ur Leukocyte Esterase Negative (Negative) Urine Microscopic RBC 0-3 (0-3) per hpf Urine Microscopic WBC 0-3 (0-3) per hpf Ur Squamous Epith Cells Many H (None-Few) per lpf Urine Bacteria None Seen (None-Few) per hpf Hyaline Casts Few (None-Few) per lpf Ur Culture Indicated? NO (NO) Specimen Rejected Volume Person Notif of Crit Blood Type A POSITIVE Antibody Screen NEGATIVE 01/05/19 01/05/19 01/05/19 Range/Units 09:16 09:30 09:30 WBC 14.8 H (4.3-11.1) K/mcL RBC 3.18 L (3.82-4.97) M/mcL Hgb 9.4 L (11.5-15.4) g/dL Hct 31.1 L (35.3-44.9) % MCV 97.8 (83.0-100.0) fL MCH 29.6 (28.0-33.3) pg MCHC 30.2 L (31.6-35.5) g/dL RDW 19.1 H (11.5-14.5) % Plt Count 221 (140-400) K/mcL MPV 8.6 L (9.4-12.4) fL Immature Gran % 0.5 (0-4) % Seg Neutrophils % 94.3 % Lymphocytes % 2.7 % Monocytes % 2.4 % Eosinophils % 0.0 % Basophils % 0.1 % Neutrophils # 14.0 H (1.6-8.9) K/mcL Lymphocytes # 0.4 L (0.6-4.6) K/mcL Monocytes # 0.4 (0.0-1.3) K/mcL Eosinophils # 0.0 (0.0-0.6) K/mcL Basophils # 0.0 (0.0-0.2) K/mcL PT (9.4-12.1) Seconds INR APTT (26.0-36.0) Seconds Sample Site ABG pH (7.32-7.45) pH Units ABG pCO2 (35-45) mmHg ABG pO2 (85-104) mmHg ABG HCO3 (21-27) mEq/L ABG Total CO2 (20-26) mEq/L ABG O2 Saturation (95-98) % ABG Base Excess (-2 to 3) mEq/L Cricket Test O2 Delivery Device Inspired O2 (1-15=lpm [id number]=%) PEEP cm H2O Sodium (136-145) mEq/L Potassium (3.5-5.1) mEq/L Chloride (98-107) mEq/L Carbon Dioxide (23-29) mEq/L BUN (8-23) mg/dL Creatinine (0.60-1.20) mg/dL Est GFR ( Amer) (> 60) Est GFR (Non-Af Amer) (> 60) BUN/Creatinine Ratio (6-26) Glucose (70-105) mg/dL Calculated Osmolality (280-300) Lactic Acid (0.5-2.2) mmol/L Calcium (8.6-10.3) mg/dL Phosphorus (2.7-4.5) mg/dL Magnesium (1.6-2.6) mg/dL Total Bilirubin (0.3-1.0) mg/dL Direct Bilirubin (0.0-0.2) mg/dL Indirect Bilirubin (0.0-1.2) mg/dL AST (13-39) Units/L ALT (7-52) Units/L Alkaline Phosphatase (34-104) Units/L Troponin I (< 0.04) ng/mL B-Natriuretic Peptide 259 H (Less than 100) pg/mL Serum Total Protein (6.4-8.9) g/dL Albumin (3.5-5.7) g/dL Globulin (2.4-3.5) g/dL Albumin/Globulin Ratio (1.1-2.2) Lipase (11-82) Units/L Random Cortisol mcg/dl Urine Color (Yellow) Urine Clarity (Clear) Urine pH (5.0-8.0) pH Units Ur Specific [place] (1.010-1.025) Urine Protein (Neg-Trace) mg/dL Urine Glucose (UA) (Normal) mg/dL Urine Ketones (Negative) mg/dL Urine Blood (Negative) Urine Nitrite (Negative) Urine Bilirubin (Negative) Urine Urobilinogen (Normal) mg/dL Ur Leukocyte Esterase (Negative) Urine Microscopic RBC (0-3) per hpf Urine Microscopic WBC (0-3) per hpf Ur Squamous Epith Cells (None-Few) per lpf Urine Bacteria (None-Few) per hpf Hyaline Casts (None-Few) per lpf Ur Culture Indicated? (NO) Specimen Rejected Hemolyzed Person Notif of Crit Blood Type Antibody Screen 01/05/19 01/05/19 01/05/19 Range/Units 09:59 10:00 10:20 WBC (4.3-11.1) K/mcL RBC (3.82-4.97) M/mcL Hgb (11.5-15.4) g/dL Hct (35.3-44.9) % MCV (83.0-100.0) fL MCH (28.0-33.3) pg MCHC (31.6-35.5) g/dL RDW (11.5-14.5) % Plt Count (140-400) K/mcL MPV (9.4-12.4) fL Immature Gran % (0-4) % Seg Neutrophils % % Lymphocytes % % Monocytes % % Eosinophils % % Basophils % % Neutrophils # (1.6-8.9) K/mcL Lymphocytes # (0.6-4.6) K/mcL Monocytes # (0.0-1.3) K/mcL Eosinophils # (0.0-0.6) K/mcL Basophils # (0.0-0.2) K/mcL PT (9.4-12.1) Seconds INR APTT (26.0-36.0) Seconds Sample Site ABG pH 7.28 L (7.32-7.45) pH Units ABG pCO2 84 H* (35-45) mmHg ABG pO2 57 L (85-104) mmHg ABG HCO3 40 H (21-27) mEq/L ABG Total CO2 42 H (20-26) mEq/L ABG O2 Saturation 83 L (95-98) % ABG Base Excess 10 H (-2 to 3) mEq/L Cricket Test O2 Delivery Device BiPAP Inspired O2 60.0 (1-15=lpm lp34-128=%) PEEP cm H2O Sodium (136-145) mEq/L Potassium (3.5-5.1) mEq/L Chloride (98-107) mEq/L Carbon Dioxide (23-29) mEq/L BUN (8-23) mg/dL Creatinine (0.60-1.20) mg/dL Est GFR ( Amer) (> 60) Est GFR (Non-Af Amer) (> 60) BUN/Creatinine Ratio (6-26) Glucose (70-105) mg/dL Calculated Osmolality (280-300) Lactic Acid 1.6 (0.5-2.2) mmol/L Calcium (8.6-10.3) mg/dL Phosphorus (2.7-4.5) mg/dL Magnesium (1.6-2.6) mg/dL Total Bilirubin (0.3-1.0) mg/dL Direct Bilirubin (0.0-0.2) mg/dL Indirect Bilirubin (0.0-1.2) mg/dL AST (13-39) Units/L ALT (7-52) Units/L Alkaline Phosphatase (34-104) Units/L Troponin I (< 0.04) ng/mL B-Natriuretic Peptide (Less than 100) pg/mL Serum Total Protein (6.4-8.9) g/dL Albumin (3.5-5.7) g/dL Globulin (2.4-3.5) g/dL Albumin/Globulin Ratio (1.1-2.2) Lipase (11-82) Units/L Random Cortisol mcg/dl Urine Color (Yellow) Urine Clarity (Clear) Urine pH (5.0-8.0) pH Units Ur Specific [place] (1.010-1.025) Urine Protein (Neg-Trace) mg/dL Urine Glucose (UA) (Normal) mg/dL Urine Ketones (Negative) mg/dL Urine Blood (Negative) Urine Nitrite (Negative) Urine Bilirubin (Negative) Urine Urobilinogen (Normal) mg/dL Ur Leukocyte Esterase (Negative) Urine Microscopic RBC (0-3) per hpf Urine Microscopic WBC (0-3) per hpf Ur Squamous Epith Cells (None-Few) per lpf Urine Bacteria (None-Few) per hpf Hyaline Casts (None-Few) per lpf Ur Culture Indicated? (NO) Specimen Rejected Hemolyzed Person Notif of [facility] Blood Type Antibody Screen - Radiology Data Radiology results reviewed: Yes I reviewed the patient's radiology results. Head CT 01/05/19 07:29 IMPRESSION: 1. No acute intracranial process identified. 2. Mild chronic small vessel ischemic changes. D/ / Samson Steel MD / Samson Steel MD Interpreting Provider: Samsno Steel MD Chest X-Ray 01/05/19 08:46 IMPRESSION: Large right pleural effusion with near complete opacification of the right hemithorax. Right thoracostomy tube in place. No pneumothorax. Small left pleural effusion with adjacent atelectasis. D/ / 01/05/2019 09:35:58 Avani Gutierrez MD / shilpi Interpreting Provider: Avani Gutierrez MD - EKG Data EKG #1 EKG attestation: Yes I reviewed and interpreted this EKG. EKG results narrative: Patient EKG shows sinus rhythm with borderline right axis deviation with a ventricular rate of 97 bpm UT interval of 162 ms, QS duration of 89 ms, QT/QTc intervals 310/394 ms effectively. There are no significant ST segment elevations, depressions, pathologic Q waves, abnormal T-wave inversions, or any other signs of acute ischemic change. This EKG performed today is generally consistent with prior EKG performed on 12/25/2018.
[2019-01-05] MEDS ORDERED: Ipratropium/Albuterol Neb 3 ML IH ONE (07:36)
[2019-01-05 07:58] LABS: ABG Base Excess 9 mEq/L (-2 to 3); ABG HCO3 39 mEq/L (21-27); ABG Oxygen Saturation 79 % (95-98); ABG PCO2 88 mmHg (35-45); ABG PH 7.25 pH Units (7.32-7.45); ABG PO2 53 mmHg (85-104); ABG TCO2 41 mEq/L (20-26); Blood Gas PEEP 6 cm H2O
--- NOTE | 2019-01-05 08:00 | Emergency Department Note ---
Disposition Clinical Impression: Acute respiratory failure with hypoxia and hypercapnia, Acute exacerbation of chronic obstructive airways disease Disposition: Admitted As Inpatient Referrals: NONE,PCP [Primary Care Provider] - General Adult HPI - General Chief complaint: ED Shortness of Breath/Dyspnea Stated complaint: VIGNESH Time Seen by Provider: 01/05/19 07:26 Source: patient, EMS Mode of arrival: EMS Limitations: altered mental status Nursing Notes Reviewed: Yes Vital Signs Reviewed: Yes - History of Present Illness HPI Narrative: ED attending attestation note: I examined this patient and my medical decision-making was reviewed with the emergency medicine resident Rodney Goncalves. I agree with the documented findings, disposition and treatment plan as described except to the extent set forth below. Briefly: 68-year-old female brought in by EMS for being unresponsive. Patient presumably has history of COPD she is on home O2 she was found semi-slumped over initially she refused all treatments and therapies EMS stated there for 90 minutes while the patient was clinically decompensating her sats dropped down into the 50s they put on give her DuoNeb treatments nonrebreather facemask on an IV established and transported her here for further evaluation patient does have a significant past medical history of cancer I understand the brain and the liver I believe and lung possibly. There is no family members with the patient patient is unable to provide any history at all. It is unclear whether advanced directives are present. Patient arrived somnolent awake to loud voice or soft sternal rub. Patient was emergently placed on BiPAP CO2 initially was 80, with a bicarbonate of 36. Providing one hour of critical care service for this patient. Admission disposition pending Pain Scale: 0 Associated symptoms: Reports: confusion Treatments Prior to Arrival: other (Bronchodilators) - Related Data Home Medications Medication Instructions Recorded Confirmed Aspirin [Lo-Dose Aspirin EC] 81 mg PO DAILY 03/16/17 01/02/19 Albuterol Sulfate [Ventolin Hfa] 2 puff IH Q4H PRN 04/16/18 01/02/19 Omeprazole [PriLOSEC] 40 mg PO DAILY 04/16/18 01/02/19 HydrOXYzine Pamoate [Vistaril] 50 mg PO TID PRN 12/01/18 01/02/19 Vitamin D 1,000 units PO DAILY 12/20/18 01/02/19 Previous Rx's Medication Instructions Recorded Diltiazem CD (24hr) [Cardizem CD] 120 mg PO DAILY #30 cap.er.24h 01/12/17 Ipratropium/Albuterol Neb [Duoneb] 3 ml IH [id number] PRN inhsol 04/17/18 Metoprolol [Lopressor] 12.5 mg PO BID 30 Days #15 tablet 12/14/18 predniSONE [PredniSONE] 20 mg PO QAM #5 tablet 12/22/18 Chair - Lift [LIFT CHAIR] 1 each .ROUTE AD #1 each 01/01/19 Lidocaine/Prilocaine [Emla] 1 appl TP DAILY #30 gm 01/01/19 Nicotine Patch [Nicoderm] 14 mg TD DAILY #30 patch.td24 01/01/19 Ondansetron HCl [Zofran] 4 mg PO Q6HR PRN #30 tablet 01/01/19 Oxycodone HCl 5 mg PO Q8HR 15 Days #45 tablet 01/01/19 Allergies Allergy/AdvReac Type Severity Reaction Status Date / Time acetaminophen [From Tylenol] Allergy See Verified 01/02/19 10:08 Comments ibuprofen Allergy See Verified 01/02/19 10:08 Comments Constitutional: Denies: fever, chills Cardiovascular: Denies: chest pain Respiratory: Denies: dyspnea Gastrointestinal: Denies: abdominal pain, nausea, vomiting, diarrhea, c onstipation, hematemesis, melena, hematochezia Genitourinary: Denies: hematuria Musculoskeletal: Denies: back pain, neck pain Neurological: Denies: headache, weakness, numbness, paresthesias Past Medical History - Past Medical History Medical history: Reports: arthritis, asthma, cancer, CHF, COPD, coronary artery disease, CVA, GERD, hypertension, malignancy, myocardial infarction Surgical history: Reports: cholecystectomy, MILLA/BSO Psychiatric history: Reports: anxiety, depression 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 - Social History Smoking Status: Current some day smoker Smokeless Tobacco Status: No Alcohol use: Reports: none Drug use: Reports: none Physical Exam - General Limitations: altered mental status General appearance: obtunded, in distress Course Vital Signs Temperature 97.5 F L 01/05/19 07:23 Pulse Rate 98 01/05/19 07:23 Respiratory Rate 30 01/05/19 07:23 Blood Pressure 158/48 01/05/19 07:23 O2 Sat by Pulse Oximetry 95 01/05/19 07:23 Temperature 97.5 F L 01/05/19 07:23 Pulse Rate 93 01/05/19 07:37 Respiratory Rate 25 01/05/19 07:37 Blood Pressure 134/41 01/05/19 07:37 O2 Sat by Pulse Oximetry 94 01/05/19 07:37 Oxygen Delivery Oxygen Delivery Bipap
[2019-01-05] MEDS ORDERED: 0.9 % Sodium Chloride 1,000 ML ONE (08:17)
[2019-01-05 09:23] LABS: Bilirubin,Urine Small (Negative); Blood,Urine Negative (Negative); Clarity,Urine Cloudy (Clear); Color,Urine Dark Yellow (Yellow); Glucose,Urine (UA) Normal (Normal); Ketones,Urine Negative (Negative); Leukocyte Esterase,Urine Negative (Negative); Nitrite,Urine Negative (Negative); Protein,Urine Trace mg/dL (Neg-Trace); Specific Gravity,Urine 1.024 (1.010-1.025); Urobilinogen,Urine Normal (Normal)
[2019-01-05 09:25] LABS: Bacteria,Urine None Seen per hpf (None-Few); Hyaline Casts,Urine Few per lpf (None-Few); RBC,Urine 0-3 per hpf (0-3); Squamous Epithelial Cell,Urine Many per lpf (None-Few); WBC,Urine 0-3 per hpf (0-3)
[2019-01-05 09:26] LABS: Activated Partial Thrombo Time 25.7 Seconds (26.0-36.0)
[2019-01-05 09:45] LABS: Basophils % 0.1 %; Hematocrit 31.1 % (35.3-44.9); Hemoglobin 9.4 g/dL (11.5-15.4); Immature Granulocytes % 0.5 % (0-4); Lymphocytes # 0.4 K/mcL (0.6-4.6); Lymphocytes % 2.7 %; Mean Corpuscular HGB Conc 30.2 g/dL (31.6-35.5); Mean Corpuscular Hemoglobin 29.6 pg (28.0-33.3); Mean Corpuscular Volume 97.8 fL (83.0-100.0); Mean Platelet Volume 8.6 fL (9.4-12.4); Monocytes # 0.4 K/mcL (0.0-1.3); Monocytes % 2.4 %; Platelet Count 221 K/mcL (140-400); Red Blood Count 3.18 M/mcL (3.82-4.97); Red Cell Distribution Width 19.1 % (11.5-14.5); Segmented Neutrophils % 94.3 %
[2019-01-05 09:56] LABS: Alanine Aminotransferase 94 Units/L (7-52); Alkaline Phosphatase 963 Units/L (34-104); Aspartate Amino Transferase 68 Units/L (13-39); BUN/Creatinine Ratio 75 (6-26); Bilirubin,Direct 0.6 mg/dL (0.0-0.2); Bilirubin,Indirect 0.5 mg/dL (0.0-1.2); Bilirubin,Total 1.1 mg/dL (0.3-1.0); Blood Urea Nitrogen 38 mg/dL (8-23); Calcium 8.7 mg/dL (8.6-10.3); Carbon Dioxide 30 mEq/L (23-29); Chloride 100 mEq/L (98-107); Glucose 127 mg/dL (70-105); Lipase 243 Units/L (11-82); Osmolality,Calculated 297 (280-300); Phosphorous 4.4 mg/dL (2.7-4.5); Potassium 5.9 mEq/L (3.5-5.1); Sodium 138 mEq/L (136-145); Troponin I 0.03 ng/mL (< 0.04); eGFR For Non-African Americans > 60 (> 60)
[2019-01-05 10:03] LABS: ABG Base Excess 10 mEq/L (-2 to 3); ABG HCO3 40 mEq/L (21-27); ABG Oxygen Saturation 83 % (95-98); ABG PCO2 84 mmHg (35-45); ABG PH 7.28 pH Units (7.32-7.45); ABG PO2 57 mmHg (85-104); ABG TCO2 42 mEq/L (20-26)
[2019-01-05] MEDS ORDERED: Naloxone 0.4 MG/ML INJ IVP PRN (11:30)
[2019-01-05] MEDS ORDERED: methylPREDNISolone 125 MG/2 ML VIAL ONE (12:35)
[2019-01-05] MEDS ORDERED: Furosemide 40 MG/4 ML VIAL ONE (12:36)
[2019-01-05] MEDS: methylPREDNISolone 125 MG/2 ML VIAL IVP SCH ×3 (12:41→23:30)
[2019-01-05] MEDS: Furosemide 40 MG/4 ML VIAL IVP ONE ×2 (12:41→13:29)
[2019-01-05] MEDS: Ipratropium/Albuterol Neb 3 ML IH SCH ×4 (13:17→23:10)
--- NOTE | 2019-01-05 13:23 | Pulmonology Consult Note ---
Date of Encounter: 01/05/19 Time of Encounter: 13:19 Assessment and Plan (1) Acute respiratory failure with hypoxia and hypercapnia Current Visit: Yes Status: Acute This is likely multifactorial including pleural effusion likely COPD exacerbation and she is at high risk for pneumonia given lethargy and aspiration risk. I reviewed her blood gas which is notable for acute on chronic hypoxic hypercapnic respiratory failure she is currently on BiPAP but could deteriorate rapidly and needs to be monitored in a stepdown setting repeat ABG in 1 hour Please start empiric antimicrobials for hospital associated pathogens as well as aspiration (anaerobes) She will benefit from 40 mg IV Lasix for hydrostatic pulmonary edema Repeat chest x-ray in the a.m. (2) Malignant pleural effusion Current Visit: Yes Status: Acute I have attached her Pleurx catheter to an [facility] and drained off 700 mL I would drain today to about 1 L and then clamp this can be unclamped tomorrow and another 1-1.5 L on his lower bases. Rapid removal could result in reexpansion pulmonary edema and respiratory failure (3) Acute exacerbation of chronic obstructive airways disease Current Visit: Yes Status: Acute IV Solu-Medrol is being given recommend IV 60 mg of Solu-Medrol twice a day and bronchodilator support (4) Lung cancer Current Visit: No Status: Acute Overall prognosis appears very poor She would be a candidate for hospice given recurrent hospitalizations and poor performance status recommend contacting her primary oncologist on Monday consider palliative care consultation over the weekend patient seems to be adamant about going home although she is confused at this time this was her wishes on 2 separate occasions that I had taking care of her previously Thank you for the consultation pulmonary will continue to follow Qualifiers: Lung location: unspecified part of lung Qualified Code(s): C34.90 - Malignant neoplasm of unspecified part of unspecified bronchus or lung History of Present Illness Consult date: 01/05/19 Requesting physician: Isabelle Garcia Reason for consult: pleural effusion Chief complaint: Difficulty in Breathing History of present illness: This is a 68-year-old woman who unfortunately was residing diagnosis metastatic small cell lung cancer and recent placement of a Pleurx catheter for recurrent right-sided malignant pleural effusion unfortunately patient is unable to provide any history because she is agitated and confused. Medical record supplied information along with the bedside nurse resident and hospitalist apparently she was found at home in respiratory distress by her daughter who called EMS EMS arrived and patient refused to go to the emergency room and apparently patient became lethargic and was taken by EMS subsequently. In the ED was noted to be hypoxic and did and demonstrating acute hypoxic hy percapnic respiratory failure was placed on BiPAP with some improvement and still has been lethargic with intermittent periods of agitation the patient is yelling out to me that she "wants to go all" she continues to repeat this phrase. Chest x-ray was notable for right-sided opacification of the hemithorax likely secondary to pleural effusion I was consulted to see if Pleurx catheter was functioning properly. Of note she is a heavy smoker with history of COPD and in addition to being admitted to [place] twice in the last month or so she was apparently recently admitted to [facility] for pneumonia she follows her to [place] [facility] with Dr. Worthy with plan for palliative chemotherapy Past Med Surg Social Fam HX - Past Medical History Medical history: arthritis, asthma, cancer, CHF, COPD, coronary artery disease, CVA, GERD, hypertension, malignancy, myocardial infarction Additional medical history: breast, liver, and LUNG CA Psychiatric history: anxiety, depression - Past Surgical History Surgical History: cholecystectomy, MILLA/BSO Additional surgical history: chest tube, tubal ligation - Social History Smoking Status: Current some day smoker Smokeless Tobacco Status: No Alcohol use: none Drug use: none - Family History Mother Living Status: Hx Family Cardiac Disorders: Yes ([place]) Hx Family Endocrine Disorder: Yes ([place]) Father Living Status: Medications and Allergies Diltiazem CD (24hr) [Cardizem CD] 120 mg PO DAILY #30 cap.er.24h 01/12/17 [Rx] Aspirin [Lo-Dose Aspirin EC] 81 mg PO DAILY 03/16/17 [History] Albuterol Sulfate [Ventolin Hfa] 2 puff IH Q4H PRN 04/16/18 [History] Omeprazole [PriLOSEC] 40 mg PO DAILY 04/16/18 [History] Ipratropium/Albuterol Neb [Duoneb] 3 ml IH [id number] PRN inhsol 04/17/18 [Rx] HydrOXYzine Pamoate [Vistaril] 50 mg PO TID PRN 12/01/18 [History] Metoprolol [Lopressor] 12.5 mg PO BID 30 Days #15 tablet 12/14/18 [Rx] Vitamin D 1,000 units PO DAILY 12/20/18 [History] predniSONE [PredniSONE] 20 mg PO QAM #5 tablet 12/22/18 [Rx] Chair - Lift [LIFT CHAIR] 1 each .ROUTE AD #1 each 01/01/19 [Rx] Lidocaine/Prilocaine [Emla] 1 appl TP DAILY #30 gm 01/01/19 [Rx] Nicotine Patch [Nicoderm] 14 mg TD DAILY #30 patch.td24 01/01/19 [Rx] Ondansetron HCl [Zofran] 4 mg PO Q6HR PRN #30 tablet 01/01/19 [Rx] Oxycodone HCl 5 mg PO Q8HR 15 Days #45 tablet 01/01/19 [Rx] Allergy/AdvReac Type Severity Reaction Status Date / Time acetaminophen [From Tylenol] Allergy See Verified 01/02/19 10:08 Comments ibuprofen Allergy See Verified 01/02/19 10:08 Comments All Systems: The remainder of the systems were reviewed and are negative Physical Examination Vital Signs: Vital Signs, Last 4 Hours Pulse Resp BP Pulse Ox 01/05/19 12:53 136 19 114/61 93 01/05/19 11:33 93 11 120/48 95 01/05/19 10:45 90 21 127/46 97 01/05/19 10:20 90 23 122/48 96 General appearance: appears uncomfortable, other (Sleepy but easily arousable she becomes agitated at times) Eyes: nonicteric ENT: oropharynx dry Neck: JVD Effort: very labored Auscultation: right: clear, bilateral: rales Cardiovascular: other (Rapid rate irregular rhythm) Gastrointestinal: normoactive bowel sounds Integumentary: normal Extremities: no clubbing, pulses normal, anasarca Musculoskeletal: no deformities pupils equal and round, unable to assess due to mental status anxious Results - Laboratory Findings CBC and BMP: 01/05/19 09:30 01/05/19 08:40 ABG ABG pH 7.28 pH Units (7.32-7.45) L 01/05/19 10:00 ABG pCO2 84 mmHg (35-45) H* 01/05/19 10:00 ABG pO2 57 mmHg (85-104) L 01/05/19 10:00 ABG O2 Saturation 83 % (95-98) L 01/05/19 10:00 PT/INR, D-dimer PT 11.0 Seconds (9.4-12.1) 01/05/19 08:40 Abnormal lab findings: Abnormal lab results WBC 14.8 K/mcL (4.3-11.1) H 01/05/19 09:30 RBC 3.18 M/mcL (3.82-4.97) L 01/05/19 09:30 Hgb 9.4 g/dL (11.5-15.4) L 01/05/19 09:30 Hct 31.1 % (35.3-44.9) L 01/05/19 09:30 MCHC 30.2 g/dL (31.6-35.5) L 01/05/19 09:30 RDW 19.1 % (11.5-14.5) H 01/05/19 09:30 MPV 8.6 fL (9.4-12.4) L 01/05/19 09:30 14.0 K/mcL (1.6-8.9) H 01/05/19 09:30 0.4 K/mcL (0.6-4.6) L 01/05/19 09:30 APTT 25.7 Seconds (26.0-36.0) L 01/05/19 08:40 ABG pH 7.28 pH Units (7.32-7.45) L 01/05/19 10:00 ABG pCO2 84 mmHg (35-45) H* 01/05/19 10:00 ABG pO2 57 mmHg (85-104) L 01/05/19 10:00 ABG HCO3 40 mEq/L (21-27) H 01/05/19 10:00 ABG Total CO2 42 mEq/L (20-26) H 01/05/19 10:00 ABG O2 Saturation 83 % (95-98) L 01/05/19 10:00 ABG Base Excess 10 mEq/L (-2 to 3) H 01/05/19 10:00 Potassium 5.9 mEq/L (3.5-5.1) H 01/05/19 08:40 Carbon Dioxide 30 mEq/L (23-29) H 01/05/19 08:40 BUN 38 mg/dL (8-23) H 01/05/19 08:40 0.51 mg/dL (0.60-1.20) L 01/05/19 08:40 75 (6-26) H 01/05/19 08:40 Glucose 127 mg/dL (70-105) H 01/05/19 08:40 1.1 mg/dL (0.3-1.0) H 01/05/19 08:40 0.6 mg/dL (0.0-0.2) H 01/05/19 08:40 AST 68 Units/L (13-39) H 01/05/19 08:40 ALT 94 Units/L (7-52) H 01/05/19 08:40 963 Units/L (34-104) H 01/05/19 08:40 B-Natriuretic Peptide 259 pg/mL (Less than 100) H 01/05/19 09:30 6.0 g/dL (6.4-8.9) L 01/05/19 08:40 3.0 g/dL (3.5-5.7) L 01/05/19 08:40 1.0 (1.1-2.2) L 01/05/19 08:40 243 Units/L (11-82) H 01/05/19 08:40 Cloudy (Clear) A 01/05/19 09:01 Small (Negative) H 01/05/19 09:01 Ur Squamous Epith Cells Many per lpf (None-Few) H 01/05/19 09:01 - Microbiology Findings Microbiology Findings: Microbiology, Last 48 Hours 01/05/19 08:38 Wound Culture - Preliminary Chest Culture is incubating. 01/05/19 08:40 Blood Culture - Preliminary Peripheral Venipuncture Culture is incubating and being continuously monitored for growth. Final report to follow. 01/05/19 08:40 Blood Culture - Preliminary Peripheral Venipuncture Culture is incubating and being continuously monitored for growth. Final report to follow. - Diagnostic Findings Chest x-ray: report reviewed, image reviewed - Clinical Findings Intake & Output: Intake & Output 01/04/19 01/05/19 01/05/19 23:59 07:59 15:59 Intake Total 250 / 250 Balance 250 / 250 Weight 73.028 kg Consult Discharge Plan - Plan Referrals: NONE,PCP [Primary Care Provider] -
[2019-01-05] MEDS ORDERED: *HR* Heparin 5,000 UNIT/ML VIAL IVP PRN ×2 (13:47)
[2019-01-05] MEDS ORDERED: *HR* Heparin 5,000 UNIT/ML VIAL IVP ONE (13:47)
[2019-01-05] MEDS ORDERED: Heparin 25,000 UNIT/250 ML D5W 25,000 UNIT/250 ML IV.SOLN IVC SCH (14:00)
--- NOTE | 2019-01-05 14:37 | Internal Med History&Physical ---
Date of Encounter: 01/05/19 Time of Encounter: 13:00 Internal Medicine - H&P: HPI Chief complaint: Shortness of breath History of present illness: Ms. Flores is a 68 year old female with pmh of COPD, chronic respiratory failure, small cell lung cancer who was foud unresponsive today by EMS. Histoy obtained from ER records as patient is very lethargic and she's on BIPAP. Per EMS/ ER reports, she used her life alert call button and EMS responded at 5:10 am and found her slumped over. Patient was administered 2 breathing treatments and initially refused transport, but lost consciousnees and was transported to the ER. In the ER, she was alert to painful stimuli and given one dose of narcan. She was placed on BIPAP and became more responsive. A chest xray was done showing a large right pleural effuson with complete opacification of the right hemithorax. Pulmonary was consulted to manage her non draining pleurx catheter. 700cc was drained in the ER. She has a poor prognosis but wishes to remain full code. She is being admitted for further management Past Med Surg Social Fam HX - Past Medical History Medical history: arthritis, asthma, cancer, CHF, COPD, coronary artery disease, CVA, GERD, hypertension, malignancy, myocardial infarction Additional medical history: breast, liver, and LUNG CA Psychiatric history: anxiety, depression - Past Surgical History Surgical History: cholecystectomy, MILLA/BSO Additional surgical history: chest tube, tubal ligation - Social History Smoking Status: Current some day smoker Smokeless Tobacco Status: No Alcohol use: none Drug use: none - Family History Mother Living Status: Hx Family Cardiac Disorders: Yes ([place]) Hx Family Endocrine Disorder: Yes (DM) Father Living Status: Internal Medicine - H&P: Meds Diltiazem CD (24hr) [Cardizem CD] 120 mg PO DAILY #30 cap.er.24h 01/12/17 [Rx] Aspirin [Lo-Dose Aspirin EC] 81 mg PO DAILY 03/16/17 [History] Albuterol Sulfate [Ventolin Hfa] 2 puff IH Q4H PRN 04/16/18 [History] Omeprazole [PriLOSEC] 40 mg PO DAILY 04/16/18 [History] Ipratropium/Albuterol Neb [Duoneb] 3 ml IH [id number] PRN inhsol 04/17/18 [Rx] HydrOXYzine Pamoate [Vistaril] 50 mg PO TID PRN 12/01/18 [History] Metoprolol [Lopressor] 12.5 mg PO BID 30 Days #15 tablet 12/14/18 [Rx] Vitamin D 1,000 units PO DAILY 12/20/18 [History] predniSONE [PredniSONE] 20 mg PO QAM #5 tablet 12/22/18 [Rx] Chair - Lift [LIFT CHAIR] 1 each .ROUTE AD #1 each 01/01/19 [Rx] Lidocaine/Prilocaine [Emla] 1 appl TP DAILY #30 gm 01/01/19 [Rx] Nicotine Patch [Nicoderm] 14 mg TD DAILY #30 patch.td24 01/01/19 [Rx] Ondansetron HCl [Zofran] 4 mg PO Q6HR PRN #30 tablet 01/01/19 [Rx] Oxycodone HCl 5 mg PO Q8HR 15 Days #45 tablet 01/01/19 [Rx] Allergy/AdvReac Type Severity Reaction Status Date / Time acetaminophen [From Tylenol] Allergy See Verified 01/02/19 10:08 Comments ibuprofen Allergy See Verified 01/02/19 10:08 Comments ROS unobtainable: due to mental status All Systems PM: A 10-system review of systems was performed and is negative for pertinent findings except as documented above in the HPI. - Constitutional Vitals: Temp Pulse Resp BP Pulse Ox 97.8 F 148 25 126/47 91 01/05/19 13:26 01/05/19 13:26 01/05/19 13:26 01/05/19 13:26 01/05/19 13:26 Exam: Lethargic elderly female, difficult to arouse - Head Head exam: Present: atraumatic, normocephalic - Eye Eye exam: Present: PERRL, conjuntiva pink, sclera anicteric Pupils: Present: PERRL - Neck Neck exam general surgery: Present: supple, trachea midline. Absent: lymphadenopathy - Respiratory Respiratory exam: Present: decreased breath sounds, respiratory distress, tachypnea. Absent: accessory muscle use, rales, rhonchi, wheezes Additional comments: pleurx catheter in right chest - Cardiovascular Cardiovascular exam: Present: irregular rhythm, +S1, +S2, tachycardia. Absent: diastolic murmur, gallop, rubs, systolic murmur - GI/Abdominal GI/Abdominal exam: Present: normal bowel sounds, soft, no peritoneal signs. Absent: distended, tenderness - Extremities Exam Extremities exam: Present: warm, radial pulses palpable and symmetrical. Absent: calf tenderness, cyanotic, pedal edema - Neurological Exam Neurological exam: Present: CN II-XII intact, oriented X3, no focal deficits. Absent: pronater drift, facial droop, speech deficit - Skin Skin exam: Present: dry, intact Internal Med - H&P Results - Labs CBC & Chem 7: 01/05/19 09:30 01/05/19 08:40 Labs: Short CBC 01/05/19 Range/Units 09:30 WBC 14.8 H (4.3-11.1) K/mcL Hgb 9.4 L (11.5-15.4) g/dL Hct 31.1 L (35.3-44.9) % Plt Count 221 (140-400) K/mcL Neutrophils # 14.0 H (1.6-8.9) K/mcL BMP 01/05/19 08:40 Sodium 138 Potassium 5.9 H Chloride 100 Carbon Dioxide 30 H BUN 38 H Creatinine 0.51 L Glucose 127 H Calcium 8.7 Cardiac Enzymes 01/05/19 Range/Units 08:40 Troponin I 0.03 (< 0.04) ng/mL Liver Function 01/05/19 Range/Units 08:40 Total Bilirubin 1.1 H (0.3-1.0) mg/dL Direct Bilirubin 0.6 H (0.0-0.2) mg/dL AST 68 H (13-39) Units/L ALT 94 H (7-52) Units/L Alkaline Phosphatase 963 H (34-104) Units/L Albumin 3.0 L (3.5-5.7) g/dL Urine 01/05/19 Range/Units 09:01 Urine Color Dark Yellow (Yellow) Urine Clarity Cloudy A (Clear) Urine pH 5.0 (5.0-8.0) pH Units Ur Specific [place] 1.024 (1.010-1.025) Urine Protein Trace (Neg-Trace) mg/dL Urine Glucose (UA) Normal (Normal) mg/dL - ABG Interpretation ABG results: 01/05/19 01/05/19 07:51 10:00 ABG pH 7.25 L 7.28 L ABG pCO2 88 H* 84 H* ABG pO2 53 L 57 L ABG HCO3 39 H 40 H ABG Total CO2 41 H 42 H ABG O2 Saturation 79 L 83 L ABG Base Excess 9 H 10 H - Impressions ITS Impressions Head CT 01/05/19 07:29 IMPRESSION: 1. No acute intracranial process identified. 2. Mild chronic small vessel ischemic changes. D/ / Samson Steel MD / Samson Steel MD Interpreting Provider: Samson Steel MD Chest X-Ray 01/05/19 08:46 IMPRESSION: Large right pleural effusion with near complete opacification of the right hemithorax. Right thoracostomy tube in place. No pneumothorax. Small left pleural effusion with adjacent atelectasis. D/ / 01/05/2019 09:35:58 Avani Gutierrez MD / bcarter Interpreting Provider: Avani Gutierrez MD - Assessment and Plan (1) Acute respiratory failure with hypoxia and hypercapnia Current Visit: Yes Status: Acute Assessment and plan: Pt presents with letharg and worsening shortness of breath with acute on chronic hypoxic hypercapneic respiraory failure secondary to COPD exacerbation, healthcare associated pneumonia, malignant p leural effusion and afib with RVR ABG showed significant respiratory acidosis and CO2 retention Will continue BIPAP, nebs steroids and antibiotics. Serial ABGs. Pulmonary following. Obtain cultures Poor prognosis, palliative care consult (2) Atrial fibrillation with rapid ventricular response Current Visit: Yes Status: Acute Assessment and plan: Start on cardizem drip. Monitor heart rate Will start on heparin drip as patient does not appear to be on anticoagulation at home (3) Hospital acquired PNA Current Visit: Yes Status: Acute Assessment and plan: Patient was recently discharged form the hospital and has high risk for pneumonia Will start on vanc and zosyn. Obtain cultures (4) Acute exacerbation of chronic obstructive airways disease Current Visit: Yes Status: Acute Assessment and plan: Continue on BIPAP, nebs, steroids and antibiotics Serial ABGS (5) Lung cancer Current Visit: Yes Status: Acute Assessment and plan: Pleurx catheter in place. Will consult palliative care for penitentiary goals Qualifiers: Lung location: unspecified part of lung Qualified Code(s): C34.91 - Malignant neoplasm of unspecified part of right bronchus or lung (6) Malignant pleural effusion Current Visit: Yes Status: Acute Assessment and plan: Catheter in place and draining. CXR showed large right pleural effusion Pulmonary on board (7) Hyperkalemia Current Visit: Yes Status: Acute Assessment and plan: Patient is npo so cannot receive kayexalate Will give cocktail of insulin, D50, bicarb and calcium gluconate (8) Congestive heart failure Current Visit: Yes Status: Acute Assessment and plan: Pt has bilateral pittng edema of unclear etiology. Possibly secodary to CHF Obtain 2D echo and place on BID lasix Qualifiers: Heart failure type: unspecified Qualified Code(s): I50.9 - Heart failure, unspecified (9) DVT prophylaxis Current Visit: Yes Status: Acute Assessment and plan: On heparin drip - Time Spent With Patient Total time spent is greater than 50% in coordination of care (as documented) at patient's floor/unit and/or counseling patient:
[2019-01-05 14:52] LABS: ABG Base Excess 11 mEq/L (-2 to 3); ABG HCO3 40 mEq/L (21-27); ABG Oxygen Saturation 88 % (95-98); ABG PCO2 76 mmHg (35-45); ABG PH 7.32 pH Units (7.32-7.45); ABG PO2 63 mmHg (85-104); ABG TCO2 42 mEq/L (20-26); Blood Gas Modality NIV; Blood Gas PEEP 7 cm H2O
[2019-01-05] MEDS ORDERED: *HR* Dextrose 50 % in Water (Syg) 50 ML SYRINGE IVP ONE (14:59)
[2019-01-05] MEDS ORDERED: Insulin Human Regular 10 UNIT in 0.9 % Sodium Chloride 10 ML IV ONE (14:59)
[2019-01-05] MEDS ORDERED: Sodium Bicarbonate 50 MEQ/50 ML VIAL IVP ONE (14:59)
[2019-01-05] MEDS ORDERED: Calcium Gluconate 2,000 MG in 0.9 % Sodium Chloride 100 ML IVPB ONE (15:00)
[2019-01-05 15:34] LABS: Hematocrit 31.5 % (35.3-44.9); Hemoglobin 9.4 g/dL (11.5-15.4); Mean Corpuscular HGB Conc 29.8 g/dL (31.6-35.5); Mean Corpuscular Hemoglobin 29.1 pg (28.0-33.3); Mean Corpuscular Volume 97.5 fL (83.0-100.0); Mean Platelet Volume 8.9 fL (9.4-12.4); Platelet Count 261 K/mcL (140-400); Red Blood Count 3.23 M/mcL (3.82-4.97); Red Cell Distribution Width 19.2 % (11.5-14.5)
[2019-01-05 15:48] LABS: Heparin anti-factor XA UFH 0.08 IU/mL (0.30-0.70); Prothrombin Time 10.9 Seconds (9.4-12.1)
[2019-01-05] MEDS ORDERED: *HR* LORazepam 2 MG/ML VIAL IVP SCH (16:00)
[2019-01-05] MEDS: Piperacillin/Tazobactam 3.375 GM in 0.9 % Sodium Chloride Mini Bag 100 ML IVPB SCH ×2 (16:42→23:31)
[2019-01-05] MEDS: *HR* LORazepam 2 MG/ML VIAL IVP PRN ×2 (17:22→21:06)
[2019-01-05] MEDS: Furosemide 40 MG/4 ML VIAL IVP SCH (17:30)
[2019-01-05] MEDS: Budesonide/Formoterol 160/4.5 1 PUFF INH IH SCH (19:51)
[2019-01-06] MEDS: *HR* LORazepam 2 MG/ML VIAL IVP PRN ×2 (03:29→12:52)
[2019-01-06] MEDS: Ipratropium/Albuterol Neb 3 ML IH SCH ×4 (03:51→15:43)
[2019-01-06 04:47] LABS: Basophils % 0.1 %; Hematocrit 30.4 % (35.3-44.9); Hemoglobin 9.5 g/dL (11.5-15.4); Immature Granulocytes % 0.8 % (0-4); Lymphocytes # 0.2 K/mcL (0.6-4.6); Lymphocytes % 1.7 %; Mean Corpuscular HGB Conc 31.3 g/dL (31.6-35.5); Mean Corpuscular Hemoglobin 29.3 pg (28.0-33.3); Mean Corpuscular Volume 93.8 fL (83.0-100.0); Mean Platelet Volume 8.9 fL (9.4-12.4); Monocytes # 0.1 K/mcL (0.0-1.3); Monocytes % 0.7 %; Neutrophils # 13.1 K/mcL (1.6-8.9); Platelet Count 234 K/mcL (140-400); Red Blood Count 3.24 M/mcL (3.82-4.97); Red Cell Distribution Width 18.6 % (11.5-14.5); Segmented Neutrophils % 96.7 %
[2019-01-06 05:08] LABS: BUN/Creatinine Ratio 82 (6-26); Blood Urea Nitrogen 36 mg/dL (8-23); Calcium 8.6 mg/dL (8.6-10.3); Carbon Dioxide 38 mEq/L (23-29); Chloride 98 mEq/L (98-107); Glucose 164 mg/dL (70-105); Magnesium 1.6 mg/dL (1.6-2.6); Osmolality,Calculated 306 (280-300); Phosphorous 3.8 mg/dL (2.7-4.5); Potassium 4.3 mEq/L (3.5-5.1); Sodium 142 mEq/L (136-145); eGFR For Non-African Americans > 60 (> 60)
--- NOTE | 2019-01-06 06:29 | Pulmonology Progress Note ---
Date of Encounter: 01/06/19 Time of Encounter: 06:29 Assessment and Plan (1) Acute respiratory failure with hypoxia and hypercapnia Current Visit: Yes Status: Acute This is multifactorial including pleural effusion hydrostatic pulmonary edema suspected pneumonia and COPD exacerbation Blood gas is reassuring although clinically patient is still tenuous on BiPAP I recommend continuation of BiPAP at this time and patient should be nothing by mouth until mental status improves She will benefit from diuresis and I recommended a Houser catheter be placed for strict I's and O's she should be about an liters negative over the next 24 hours (2) Malignant pleural effusion Current Visit: Yes Status: Acute I will reopen the Pleurx catheter at the [facility] in today for with goal to take out a about a liter off this can be done in subsequent days as well (3) Acute exacerbation of chronic obstructive airways disease Current Visit: Yes Status: Acute Continue IV steroids and bronchodilators agree with antibiotics which can be de- escalate based upon clinical course (4) Lung cancer Current Visit: Yes Status: Acute The patient has small cell lung cancer and has chronic debility multiple medical Coumadin but conditions and has been at times noncompliant with the therapy. Overall prognosis is very poor in the acute setting actually it is extremely poor she has a high risk for further deterioration requiring endotracheal intubation and even CPR. I recommend palliative care consultation to address goals of care as in this situation at unclear to me the patient actually has a preference of wanting aggressive care based upon our interactions in the past and recommend consultation with family regarding plan moving forward. It would be very reasonable to consider hospice at this time and it will likely be beneficial to consult oncology to facilitate these conversations Please call With any questions Qualifiers: Lung location: unspecified part of lung Qualified Code(s): C34.91 - Ma lignant neoplasm of unspecified part of right bronchus or lung Subjective Principal diagnosis: Respiratory Failure Interval history: Remains somnolent blood gas on repeat was a little bit better she still not very interactive while on BiPAP occasionally moaning and becomes anxious. Had about a liter out from chest tube chest x-ray still shows opacification of the right lung larios. Also noted A. fib with RVR Objective PUL Vital signs: Last Vital Signs Temp 98.1 F 01/06/19 03:29 Pulse 128 01/06/19 06:00 Resp 30 01/06/19 03:52 BP 126/71 01/06/19 06:00 Pulse Ox 93 01/06/19 03:52 General appearance: no acute distress, lethargic (Is able to open the eyes to voice and moving all extremities), other (Frail Chronically Ill Appearing ) Eyes: nonicteric Neck: supple Auscultation: left: wheezes, right: diminished breath sounds Cardiovascular: irregular rhythm Gastrointestinal: soft Extremities: pulses normal, anasarca Musculoskeletal: no deformities pupils equal and round, other (Moves all extremities spontaneously does not appear to have a focal weakness) anxious Results - Laboratory Findings CBC and BMP: 01/06/19 04:35 01/06/19 04:35 ABG ABG pH 7.32 pH Units (7.32-7.45) 01/05/19 14:48 ABG pCO2 76 mmHg (35-45) H* 01/05/19 14:48 ABG pO2 63 mmHg (85-104) L 01/05/19 14:48 ABG O2 Saturation 88 % (95-98) L 01/05/19 14:48 PT/INR, D-dimer PT 10.9 Seconds (9.4-12.1) 01/05/19 13:48 Abnormal lab findings: Abnormal lab results WBC 13.5 K/mcL (4.3-11.1) H 01/06/19 04:35 RBC 3.24 M/mcL (3.82-4.97) L 01/06/19 04:35 Hgb 9.5 g/dL (11.5-15.4) L 01/06/19 04:35 Hct 30.4 % (35.3-44.9) L 01/06/19 04:35 MCHC 31.3 g/dL (31.6-35.5) L 01/06/19 04:35 RDW 18.6 % (11.5-14.5) H 01/06/19 04:35 MPV 8.9 fL (9.4-12.4) L 01/06/19 04:35 13.1 K/mcL (1.6-8.9) H 01/06/19 04:35 0.2 K/mcL (0.6-4.6) L 01/06/19 04:35 APTT 25.7 Seconds (26.0-36.0) L 01/05/19 08:40 Heparin Anti-Xa, Unfract 0.08 IU/mL (0.30-0.70) L 01/05/19 13:48 ABG pH 7.28 pH Units (7.32-7.45) L 01/05/19 10:00 ABG pCO2 76 mmHg (35-45) H* 01/05/19 14:48 ABG pO2 63 mmHg (85-104) L 01/05/19 14:48 ABG HCO3 40 mEq/L (21-27) H 01/05/19 14:48 ABG Total CO2 42 mEq/L (20-26) H 01/05/19 14:48 ABG O2 Saturation 88 % (95-98) L 01/05/19 14:48 ABG Base Excess 11 mEq/L (-2 to 3) H 01/05/19 14:48 Potassium 5.9 mEq/L (3.5-5.1) H 01/05/19 08:40 Carbon Dioxide 38 mEq/L (23-29) H 01/06/19 04:35 BUN 36 mg/dL (8-23) H 01/06/19 04:35 0.44 mg/dL (0.60-1.20) L 01/06/19 04:35 82 (6-26) H 01/06/19 04:35 Glucose 164 mg/dL (70-105) H 01/06/19 04:35 POC Glucose 159 mg/dL (70-99) H 01/06/19 05:34 306 (280-300) H 01/06/19 04:35 1.1 mg/dL (0.3-1.0) H 01/05/19 08:40 0.6 mg/dL (0.0-0.2) H 01/05/19 08:40 AST 68 Units/L (13-39) H 01/05/19 08:40 ALT 94 Units/L (7-52) H 01/05/19 08:40 963 Units/L (34-104) H 01/05/19 08:40 B-Natriuretic Peptide 259 pg/mL (Less than 100) H 01/05/19 09:30 6.0 g/dL (6.4-8.9) L 01/05/19 08:40 3.0 g/dL (3.5-5.7) L 01/05/19 08:40 1.0 (1.1-2.2) L 01/05/19 08:40 243 Units/L (11-82) H 01/05/19 08:40 Cloudy (Clear) A 01/05/19 09:01 Small (Negative) H 01/05/19 09:01 Ur Squamous Epith Cells Many per lpf (None-Few) H 01/05/19 09:01 - Microbiology Findings Microbiology Findings: Microbiology, Last 48 Hours 01/05/19 08:38 Wound Culture - Preliminary Chest Culture is incubating. 01/05/19 08:40 Blood Culture - Preliminary Peripheral Venipuncture Culture is incubating and being continuously monitored for growth. Final report to follow. 01/05/19 08:40 Blood Culture - Preliminary Peripheral Venipuncture Culture is incubating and being continuously monitored for growth. Final report to follow. - Clinical Findings Intake & Output: Intake & Output 01/05/19 01/05/19 01/06/19 15:59 23:59 07:59 Intake Total 500 / 655.0 155.0 / 655.0 350 / 350 Output Total 900 / 1000 100 / 1000 Balance -400 / -345.0 55.0 / -345.0 350 / 350 Weight 66.1 kg Consult Discharge Plan - Plan Referrals: NONE,PCP [Primary Care Provider] -
[2019-01-06] MEDS: Budesonide/Formoterol 160/4.5 1 PUFF INH IH SCH (07:22)
[2019-01-06] MEDS: Aspirin Enteric Coated 81 MG Tablet PO SCH (07:39)
[2019-01-06] MEDS: Furosemide 40 MG/4 ML VIAL IVP SCH ×2 (07:55→17:02)
[2019-01-06] MEDS: methylPREDNISolone 125 MG/2 ML VIAL IVP SCH ×2 (07:55→17:02)
[2019-01-06] MEDS: Piperacillin/Tazobactam 3.375 GM in 0.9 % Sodium Chloride Mini Bag 100 ML IVPB SCH (07:56)
[2019-01-06] MEDS: Nicotine 14 MG PATCH.TD24 TD SCH (07:56)
[2019-01-06] MEDS ORDERED: Diltiazem CD (24hr) 120 MG CAPSULE PO SCH (09:00)
--- NOTE | 2019-01-06 10:50 | Electrocardiograph Report ---
[place] [id number] Test Date: 2019-01-05 Pat Name: Janice Flores Department: 110 Room: 2N03 Gender: F [employer]ishing [employer] Sawyer: Nicole : 1950 Requested By: Isabelle Garcia Order Number: [id number] Reading MD: Melanie Gracia Measurements Intervals Lolo Rate: 130 P: AR: 0 QRS: 49 QRSD: 84 T: 47 QT: 251 QTc: 328 Interpretive Statements ATRIAL FIBRILLATION WITH RAPID VENTRICULAR RESPONSE ABNORMAL RHYTHM ECG Electronically Signed On 01-06-2019 10:49:12 EDT by Melanie Gracia
--- NOTE | 2019-01-06 10:58 | Electrocardiograph Report ---
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
[2019-01-06 11:36] LABS: ABG Base Excess 16 mEq/L (-2 to 3); ABG HCO3 42 mEq/L (21-27); ABG Oxygen Saturation 95 % (95-98); ABG PCO2 59 mmHg (35-45); ABG PH 7.46 pH Units (7.32-7.45); ABG PO2 73 mmHg (85-104); ABG TCO2 44 mEq/L (20-26)
--- NOTE | 2019-01-06 11:37 | Internal Med Progress Note ---
Hospitalist Progress Note - Encounter Date of Encounter: 01/06/19 Time of Encounter: 11:34 - Subjective Interval History: Patient seen and examined earlier this morning with RN present at bedside. Patient noted to be somnolent, opening eyes to sternal rub, agitated with pulling bipap mask due to which soft restraints were used. She is not answering any questions or following any commands. Noted to remain in Afib with rVR, rate uncontrolled despite being on cardizem drip. Palliative care evaluation is requested given poor prognosis and to establish goals of care and code status Unable to obtain ROS due to nonverbal status - Exam Vitals: Temp Pulse Resp BP Pulse Ox 97.6 F 133 22 115/65 90 01/06/19 10:57 01/06/19 10:57 01/06/19 11:28 01/06/19 10:57 01/06/19 11:28 Exam: General: on bipap support, lethargic, frail appearing elderly female HEENT: PERRLA, NC/AT, no scleral icterus Respiratory: diminished breath sounds, no wheezing Cardiovascular: irregularly irregular rhythm, tachycardic, no murmurs GI: Soft, Non tender, non distended, normal bowel sounds Ext: pitting edema on b/l LE, distal LE erythem bilaterally Neuro: somnolent - Assessment and Plan (1) Acute respiratory failure with hypoxia and hypercapnia Current Visit: Yes Status: Acute Assessment and Plan: Likely secondary to underlying maligancy and COPD exac/HCAP Pulmonary input appreciated pt is s/p drainage of fluid yesterday continue systemic steroids diuretic therapy f/u blood cultures Poor prognosis, palliative care consult has been requested (2) Lung cancer Current Visit: Yes Status: Acute Assessment and Plan: Pleurx catheter in place. awaiting palliative care follow up to establish goals of care and code status (3) Acute exacerbation of chronic obstructive airways disease Current Visit: Yes Status: Acute Assessment and Plan: as listed above (4) Malignant pleural effusion Current Visit: Yes Status: Acute Assessment and Plan: Pulmonary evaluation appreciated (5) Atrial fibrillation with rapid ventricular response Current Visit: Yes Status: Acute Assessment and Plan: On cardizem drip, rate uncontrolled Cardiology evaluation requested currently on heparin drip (6) Hospital acquired PNA Current Visit: Yes Status: Acute Assessment and Plan: continue Vanc and Zosyn f/u blood cultures (7) Hyperkalemia Current Visit: Yes Status: Resolved Assessment and Plan: resolved (8) Congestive heart failure Current Visit: Yes Status: Acute Assessment and Plan: f/u 2D echo continue IV lasix (9) DVT prophylaxis Current Visit: Yes Status: Acute Assessment and Plan: on heparin drip - Time Spent with Patient Total time spent is greater than 50% in coordination of care (as documented) at patient's floor/unit and/or counseling patient: Greater than 35 minutes Plan of Care Discussed with: nurse Internal Medicine: Result - Labs CBC & Chem 7: 01/06/19 04:35 01/06/19 04:35 Labs: Short CBC 01/05/19 01/06/19 Range/Units 13:48 04:35 WBC 15.9 H 13.5 H (4.3-11.1) K/mcL Hgb 9.4 L 9.5 L (11.5-15.4) g/dL Hct 31.5 L 30.4 L (35.3-44.9) % Plt Count 261 234 (140-400) K/mcL Neutrophils # 13.1 H (1.6-8.9) K/mcL BMP 01/05/19 01/06/19 17:56 04:35 Sodium 142 Potassium 5.1 4.3 Chloride 98 Carbon Dioxide 38 H BUN 36 H Creatinine 0.44 L Glucose 164 H Calcium 8.6 - ABG Interpretation ABG results: ABG ABG pH 7.32 pH Units (7.32-7.45) 01/05/19 14:48 ABG pCO2 76 mmHg (35-45) H* 01/05/19 14:48 ABG pO2 63 mmHg (85-104) L 01/05/19 14:48 ABG O2 Saturation 88 % (95-98) L 01/05/19 14:48 PT/INR, D-dimer PT 10.9 Seconds (9.4-12.1) 01/05/19 13:48 - Impressions Impressions Echocardiogram 01/05/19 14:51 Impressions: Atrial fibrillation with elevated heart rates. LVEF 65%. Indeterminate diastolic function. Normal right ventricular structure and function. Mild-moderate mitral regurgitation. Unable to estimate RVSP due to suboptimal TR signal. Left Ventricular Wall Motion: Rest Echo Findings All wall segments showed normal motion. Findings: Study Quality * Technically adequate exam. ECG Findings * Atrial fibrillation with elevated heart rates. Left Ventricle * LVEF 65%. * Normal LV chamber size, wall thickness and function. * Indeterminate diastolic function. Right Ventricle * Normal right ventricular structure and function. Left Atrium * Left atrium is not optimally visualized. Right Atrium * Normal right atrial size. Aortic Valve * No aortic regurgitation. * Aortic valve not well visualized. * No aortic stenosis. Mitral Valve * No mitral stenosis. * Mild-moderate mitral regurgitation. * Mildly thickened mitral valve leaflets. Tricuspid Valve * Tricuspid valve not well visualized. * Trace tricuspid regurgitation. * Estimated RA pressure is 8 mmHg. Pulmonic Valve * Pulmonic valve is not well visualized. * No pulmonic stenosis. * Trace pulmonic regurgitation. Pulmonary Artery * Pulmonary artery not well visualized. Aorta * Normally sized aortic root. Pericardium * There is no pericardial effusion present. Interatrial Septum * No evidence of PFO by color Doppler. IVC * The IVC is not dilated. * < 50% respiratory change. Chest X-Ray 01/06/19 06:29 IMPRESSION: 1. Near complete opacification of the right hemithorax, which appears worsened from the prior exam. 2. Minimal left basilar opacification with likely trace left pleural effusion. 3. No convincing pneumothorax. D/ / Jaspal Barry MD / Jaspal Barry MD Interpreting Provider: Jaspal Barry MD Consult Discharge Plan - Plan Referrals: NONE,PCP [Primary Care Provider] - (2) Lung cancer Qualifiers: Lung location: unspecified part of lung Qualified Code(s): C34.91 - Malignant neoplasm of unspecified part of right bronchus or lung (8) Congestive heart failure Qualifiers: Heart failure type: unspecified Qualified Code(s): I50.9 - Heart failure, unspecified
[2019-01-06] MEDS: OXYCODONE Oral CONC 10 MG/0.5 ML ORAL.SYG SL PRN ×3 (13:21→21:00)
--- NOTE | 2019-01-06 15:15 | Palliative - Consult Note ---
Date of Encounter: 01/06/19 Time of Encounter: 12:20 - Assessment and Plan (1) Dyspnea Current Visit: No Status: Chronic Assessment and plan: Patient having difficulty breathing. Add Oxycodone PRN for comfort. Qualifiers: Dyspnea type: shortness of breath Qualified Code(s): R06.02 - Shortness of breath; R06.00 - Dyspnea, unspecified; R06.01 - Orthopnea (2) Anxiety Current Visit: Yes Status: Acute Assessment and plan: Patient attempting to pull of BiPAP, noted to be appearing anxious. Add Ativan PRN. (3) Goals of care, counseling/discussion Current Visit: Yes Status: Acute Assessment and plan: Conducted lengthy, approximately 70 minutes, goals of care discussion with perry ent's daughter Peggy, daughter Queenie, nephew in law Tim, granddaughter Kamala, [place] cousin, and with her brother Hyrum. Patient is unmarried, has no medical power of employment attorney. Patient's daughters Radhika portillo and Peggy designated as decision-makers. Patient unable to participate in conversation due to confusion. Patient's daughters Queenie and Peggy expresses desires to make patient comfort care. Reports feels this hospital admission related to chemotherapy. Reports met with pulmonary doctor this morning and feel comfort care best decision for patient at this time. Educated patient's family comfort care meant to stop heart monitoring, restraints, and a BiPAP for treatment purposes. Patient's daughter's request all antibiotics and any unnecessary medication be discontinued at this time. Patient's daughters expressed have already spoke with [facility] hospice and would like Peggy Whatley as patient's nurse. Patient having severe symptoms at this time. Explain to family it would be necessary to cont rol patient's symptoms prior to discharge. Family in agreement. Change patient's CODE STATUS to DNR CC. Transition patient to 2A nursing unit. Patient to stay under hospitalist service at this time. Patient will need discharged to detention with Hospice services. Notified Dr. De La Fuente in change of level of care. Received notification of patient's daughters presenting to nurses station, inqu iring plan of care at this point. Nurse contacted Dr. De La Fuente, inquired if palliative care had a discussion with patient's family. Return to patient's room for additional 15 minute conversation confirming patient's family's wishes. Family remains congruent with above-stated wishes. Patient's daughter Peggy then identified [facility] in [facility] necessary at time of discharge. Patient's daughter Peggy also presented name of home designation should patient pass. Patient's primary RN Ev mcmahon. Updated Dr. De La Fuente with results of second conversation with patient's family. (4) Palliative care encounter Current Visit: Yes Status: Acute (5) Atrial fibrillation with rapid ventricular response Current Visit: Yes Status: Acute Assessment and plan: Cardizem drip discontinued per family request. (6) Acute respiratory failure with hypoxia and hypercapnia Current Visit: Yes Status: Acute Assessment and plan: Patient transitioned from BiPAP to nasal cannula for comfort. (7) Acute exacerbation of chronic obstructive airways disease Current Visit: Yes Status: Acute Palliative-CN HPI - Data of Consult Patient: new to practice Consult date: 01/05/19 Requesting Physician: Isabelle Garcia Primary Care Provider: PCP NONE - Consult Narrative Palliative Care/Comfort Measures: Palliative care Reason for consult: Small cell cancer with recurrent hospitalization; goals of care History of present illness: Ms. Flores is a 68 year old female arrived to [facility] emergency room on 01/05/2019, via EMS after change of consciousness post alerting life alert. Upon admission patient diagnosed with acute on chronic respiratory failure with hypoxia and hypercapnia, malignant pleural effusion, acute exacerbation of COPD, and lung cancer. Pulmonary consult to due to pleural effusion connected chest tube to Atrium drainage system, had 800 mL's output; recommend palliative care consult. Received telephone call from Dr. De La Fuente requesting urgent discussion with patient's family as patient's family desired patient to be made comfort care. Patient lying in bed with eyes closed. Noted restraints with BiPAP mask. Patient minimally responsive to tactile stimulation. Appears to be attempting to pull off BiPAP at this time. Patient had copious family members present at bedside, see goals of care section for notation of discussion. CC: Isabelle Garcia - Time Spent with Patient Time: Total time spent is greater than 50% in coordination of care (as documented) at patient's floor/unit and/or counseling patient: Time with patient: 75 minutes Past Med Surg Social Fam HX - Past Medical History Medical history: arthritis, asthma, cancer, CHF, COPD, coronary artery disease, CVA, GERD, hypertension, malignancy, myocardial infarction Additional medical history: breast, liver, and LUNG CA Psychiatric history: anxiety, depression - Past Surgical History Surgical History: cholecystectomy, MILLA/BSO Additional surgical history: chest tube, tubal ligation - Social History Smoking Status: Current some day smoker Smokeless Tobacco Status: No Alcohol use: none Drug use: none - Family History Mother History Unknown: Yes Living Status: Hx Family Cardiac Disorders: Yes ([place]) Hx Family Endocrine Disorder: Yes (DM) Father History Unknown: Yes Living Status: Medications and Allergies Diltiazem CD (24hr) [Cardizem CD] 120 mg PO DAILY #30 cap.er.24h 01/12/17 [Rx] Aspirin [Lo-Dose Aspirin EC] 81 mg PO DAILY 03/16/17 [History] Albuterol Sulfate [Ventolin Hfa] 2 puff IH Q4H PRN 04/16/18 [History] Omeprazole [PriLOSEC] 40 mg PO DAILY 04/16/18 [History] HydrOXYzine Pamoate [Vistaril] 50 mg PO TID PRN 12/01/18 [History] Metoprolol [Lopressor] 12.5 mg PO BID 30 Days #15 tablet 12/14/18 [Rx] Cholecalciferol (D-3) [Vitamin D] 1,000 unit PO DAILY #0 12/20/18 [History] Lidocaine/Prilocaine [Emla] 1 appl TP DAILY #30 gm 01/01/19 [Rx] Nicotine Patch [Nicoderm] 14 mg TD DAILY #30 patch.td24 01/01/19 [Rx] Ondansetron HCl [Zofran] 4 mg PO Q6HR PRN #30 tablet 01/01/19 [Rx] Oxycodone HCl 5 mg PO Q8HR 15 Days #45 tablet 01/01/19 [Rx] Doxycycline Monohydrate [Mondoxyne Nl] 100 mg PO BID 01/06/19 [History] predniSONE [PredniSONE] 20 mg PO DAILY 01/06/19 [History] Allergy/AdvReac Type Severity Reaction Status Date / Time acetaminophen [From Tylenol] Allergy See Verified 01/02/19 10:08 Comments ibuprofen Allergy See Verified 01/02/19 10:08 Comments ROS unobtainable: due to mental status Palliative Care-Exam - Constitutional Vitals: Temp Pulse Resp BP Pulse Ox 97.6 F 133 22 115/65 91 01/06/19 12:06 01/06/19 12:06 01/06/19 12:06 01/06/19 12:06 01/06/19 12:06 General appearance: Present: disheveled, mild distress, obese - Head Head Exam: Present: atraumatic, normal inspection - Eye Eye exam: Present: conjuntiva pink. Absent: periorbital swelling, periorbital tenderness Pupils: Absent: fixed - ENT ENT exam: Present: mucous membranes dry, normal external ear exam - Expanded ENT Exam Mouth Exam: Absent: drooling - Neck Neck exam: Present: normal inspection - Respiratory Respiratory exam: Present: accessory muscle use, rhonchi, tachypnea - Cardiovascular Cardiovascular exam: Present: irregular rhythm - GI/Abdominal Exam GI/Abdominal exam: Present: diminished bowel sounds, soft. Absent: tenderness - Rectal Rectal exam: Present: deferred - Extremities Exam Extremities exam: Present: pedal edema. Absent: calf tenderness - Neurological Exam Neurological exam: Present: alert (with stimulation), altered. Absent: oriented X3 - Expanded Neurological Exam Patient oriented to: Present: person Coma Scale Eye Opening: To Pain Coma Scale Motor Response: Localizes to Pain Coma Scale Verbal Response: Confused Coma Scale Total: 11 - Psychiatric Psychiatric exam: Present: flat affect - Skin Skin exam: Present: dry, warm. Absent: intact Internal Medicine - CN: Reslt - Labs CBC & Chem 7: 01/06/19 04:35 01/06/19 04:35 Labs: Short CBC 01/05/19 01/06/19 Range/Units 13:48 04:35 WBC 15.9 H 13.5 H (4.3-11.1) K/mcL Hgb 9.4 L 9.5 L (11.5-15.4) g/dL Hct 31.5 L 30.4 L (35.3-44.9) % Plt Count 261 234 (140-400) K/mcL Neutrophils # 13.1 H (1.6-8.9) K/mcL BMP 01/05/19 01/06/19 17:56 04:35 Sodium 142 Potassium 5.1 4.3 Chloride 98 Carbon Dioxide 38 H BUN 36 H Creatinine 0.44 L Glucose 164 H Calcium 8.6 - ABG Interpretation ABG results: ABG ABG pH 7.46 pH Units (7.32-7.45) H 01/06/19 11:33 ABG pCO2 59 mmHg (35-45) H 01/06/19 11:33 ABG pO2 73 mmHg (85-104) L 01/06/19 11:33 ABG O2 Saturation 95 % (95-98) 01/06/19 11:33 PT/INR, D-dimer PT 10.9 Seconds (9.4-12.1) 01/05/19 13:48 - Impressions Impressions Echocardiogram 01/05/19 14:51 Impressions: Atrial fibrillation with elevated heart rates. LVEF 65%. Indeterminate diastolic function. Normal right ventricular structure and function. Mild-moderate mitral regurgitation. Unable to estimate RVSP due to suboptimal TR signal. Left Ventricular Wall Motion: Rest Echo Findings All wall segments showed normal motion. Findings: Study Quality * Technically adequate exam. ECG Findings * Atrial fibrillation with elevated heart rates. Left Ventricle * LVEF 65%. * Normal LV chamber size, wall thickness and function. * Indeterminate diastolic function. Right Ventricle * Normal right ventricular structure and function. Left Atrium * Left atrium is not optimally visualized. Right Atrium * Normal right atrial size. Aortic Valve * No aortic regurgitation. * Aortic valve not well visualized. * No aortic stenosis. Mitral Valve * No mitral stenosis. * Mild-moderate mitral regurgitation. * Mildly thickened mitral valve leaflets. Tricuspid Valve * Tricuspid valve not well visualized. * Trace tricuspid regurgitation. * Estimated RA pressure is 8 mmHg. Pulmonic Valve * Pulmonic valve is not well visualized. * No pulmonic stenosis. * Trace pulmonic regurgitation. Pulmonary Artery * Pulmonary artery not well visualized. Aorta * Normally sized aortic root. Pericardium * There is no pericardial effusion present. Interatrial Septum * No evidence of PFO by color Doppler. IVC * The IVC is not dilated. * < 50% respiratory change. Chest X-Ray 01/06/19 06:29 IMPRESSION: 1. Near complete opacification of the right hemithorax, which appears worsened from the prior exam. 2. Minimal left basilar opacification with likely trace left pleural effusion. 3. No convincing pneumothorax. D/ / Jaspal Barry MD / Jaspal Barry MD Interpreting Provider: Jaspal Barry MD Consult Discharge Plan - Plan Referrals: NONE,PCP [Primary Care Provider] - Palliative Quality Palliative Quality: Screen for Code Status: Yes, Screen for Goals of Care: Yes, Screen for Pain: Yes, If Pain Regimen Started, Initiate Bowel Regimen: NA, Screen for Nausea/Vomitting: Yes Code Status: 01/05/19 11:30 Resuscitation Status: Active [RES] Routine Comment: Resuscitation Status: Full Code 01/06/19 12:54 DNR [Resuscitation Status: Active] [RES] Routine Comment: State form completed. Resuscitation Status: DNR-Comfort Care Palliative Scale - Palliative Performance Scale How ambulatory is this patient?: Totally bed bound What is patient's level of activity and evidence of disease?: Unable to do any activity, Extensive disease How much self-care assistance does patient require?: Total care How much oral intake does the patient have?: Mouth care only What is this patient's level of consciousness?: Drowsy or coma with or without confusion Palliative Performance Score: 10 %
[2019-01-06] MEDS ORDERED: Ipratropium/Albuterol Neb 3 ML IH PRN (16:55)
[2019-01-06] MEDS ORDERED: Budesonide/Formoterol 160/4.5 1 PUFF INH IH PRN (16:56)
[2019-01-07 00:26] LABS: Basophils % 0.1 %; Hematocrit 29.7 % (35.3-44.9); Hemoglobin 9.3 g/dL (11.5-15.4); Immature Granulocytes % 0.6 % (0-4); Lymphocytes # 0.2 K/mcL (0.6-4.6); Lymphocytes % 1.2 %; Mean Corpuscular HGB Conc 31.3 g/dL (31.6-35.5); Mean Corpuscular Volume 92.5 fL (83.0-100.0); Mean Platelet Volume 9.1 fL (9.4-12.4); Monocytes # 0.1 K/mcL (0.0-1.3); Monocytes % 0.4 %; Platelet Count 244 K/mcL (140-400); Red Blood Count 3.21 M/mcL (3.82-4.97); Red Cell Distribution Width 18.6 % (11.5-14.5); Segmented Neutrophils % 97.7 %
[2019-01-07 00:30] LABS: Neutrophils # 19.3 K/mcL (1.6-8.9)
[2019-01-07 00:45] LABS: BUN/Creatinine Ratio 75 (6-26); Blood Urea Nitrogen 41 mg/dL (8-23); Calcium 8.4 mg/dL (8.6-10.3); Carbon Dioxide 39 mEq/L (23-29); Chloride 98 mEq/L (98-107); Glucose 155 mg/dL (70-105); Magnesium 1.7 mg/dL (1.6-2.6); Osmolality,Calculated 307 (280-300); Phosphorous 4.4 mg/dL (2.7-4.5); Potassium 3.8 mEq/L (3.5-5.1); Sodium 142 mEq/L (136-145); eGFR For Non-African Americans > 60 (> 60)
[2019-01-07 00:50] LABS: Platelet Estimate Normal (Normal); Poikilocytosis 1+ (Not Present); Stomatocytes 2+ (Not Present); Target Cells 2+ (Not Present)
[2019-01-07] MEDS: methylPREDNISolone 125 MG/2 ML VIAL IVP SCH ×2 (00:52→08:27)
[2019-01-07] MEDS: *HR* LORazepam Oral Conc 2 MG/ML SL PRN ×3 (00:52→08:27)
[2019-01-07] MEDS: OXYCODONE Oral CONC 10 MG/0.5 ML ORAL.SYG SL PRN ×2 (00:53→06:14)
[2019-01-07] MEDS ORDERED: OXYCODONE Oral CONC 10 MG/0.5 ML ORAL.SYG SL PRN (03:28)
[2019-01-07] MEDS ORDERED: Atropine 1% Opth Drops 100 DROP/5 ML BOTTLE SL PRN ×2 (03:28→04:38)
[2019-01-07] MEDS ORDERED: Scopolamine Patch 1.5 MG PATCH.TD72 TD SCH (03:30)
[2019-01-07 07:16] VITALS: BP 102/57
[2019-01-07] MEDS: Nicotine 14 MG PATCH.TD24 TD SCH (08:27)
[2019-01-07] MEDS: Aspirin Enteric Coated 81 MG Tablet PO SCH (08:28)
[2019-01-07] MEDS: Furosemide 40 MG/4 ML VIAL IVP SCH (08:28)
[2019-01-07] MEDS ORDERED: Aminoglycoside Consult 1 EACH MC ONE (08:44)
--- NOTE | 2019-01-07 13:18 | Death Note ---
Discharge Sum: Summary - Date and Time Date of admission: 01/05/19 11:30 Date of : 01/07/19 Time of : 09:10 - Summary Details: Ms. Flores is a 68 year old female with pmh of COPD, chronic respiratory failure, small cell lung cancer who was foud unresponsive on day of admission by EMS. Per EMS/ ER reports, she used her life alert call button and EMS responded at 5:10 am and found her slumped over. Patient was administered 2 breathing treatments and initially refused transport, but lost consciousness and was transported to the ER. Patient was very lethargic on presentation and was placed on BIPAP. In the ER, she was alert to painful stimuli and given one dose of narcan. She was placed on BIPAP and became more responsive. A chest xray was done showed a large right pleural effuson with complete opacification of the right hemithorax. Pulmonary was consulted to manage her non draining pleurx catheter. 700cc was drained in the ER. She was being admitted for further management but progressively declined. Due to her poor prognosis, palliative care service was consulted to see. Palliaive care explained o family that symptoms severe at this time and prognosis poor. They explained to family it would be necessary to control patient's symptoms prior to discharge. Family agreed and changed patient's CODE STATUS to DNR CC. Earlier this morning nurse notified me that pt was no longer responsive. Upon my evaluation, pt had no breath, no pulse, or heart sounds. She was non-responsive to verbal or painful stimuli. Pupils where fixed and dilated. Family at bedside and aware. Time of 09:10 am. - Additional Data Confirmation of as documented by pronouncing clinician: no pulse, no respirations, no heart sounds, pupils fixed and dilated Family: at bedside Attending/PCP notified?: Yes Attending physician: Isabelle Garcia Was code activated?: No Autopsy requested?: No land examiner notified?: No Organ bank notified?: No Advance directives: Yes Hospice patient?: No Discharge Sum: Diag - PCOD Probable Cause of : Acute respiratory failure with hypoxia and hypercapnia Discharge Sum: Prov - Provider Primary care physician: PCP NONE Admitting clinician: Isabelle Garcia Attending physician on admission: Elida Mukherjee Consults: 01/05/19 11:04 Consult to Pulmonology [CONS] Routine Consulting Provider: [facility] [place] Reason for Consult: acute hypoxic hypercapneic failure Call Completed: Yes 01/05/19 14:34 Consult to Palliative Care [CONS] Routine Comment: Consulting Provider: Palliative Care [place] Reason for Consult: small cell cancer with recurrent hospitalizations Call Completed: No 01/05/19 17:33 Consult to Oncology [CONS] Routine Consulting Provider: Oncology [facility] [place] Reason for Consult: lung cancer Call Completed: No Pronouncing clinician: Elida Mukherjee
--- NOTE | 2019-01-09 15:51 | Electrocardiograph Report ---
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
== END 2019-01-07 09:10 | disposition expired | DRG 180 ==
LOC: EMEROOARM 07:24 → 2ANU 07:24 → 2NNU 12:23 → 2ANU 01-06 13:34
PROVIDERS: ADMIT Student in an Organized Health Care Education/Training Program; ATTEND Student in an Organized Health Care Education/Training Program